=== PATIENT | female | born 1935 | race Caucasian/White ===

== ENCOUNTER 2016-11-26 08:27 | Emergency (ER) | payer OTHER ==
[~2016-11-26] VITALS: Ht 158.8 cm; Wt 65.8 kg
[~2016-11-26 08:27] MED LIST: ASPI81TA21 PO; BIOT1CAP8 PO; CALCTAB5 PO; CHOL1TAB42 PO; KRIL1CAP7 PO; MULT-513 PO; ZNTT/150 PO
[2016-11-26 08:32] VITALS: Ht 158.8 cm; Wt 65.8 kg
--- NOTE | 2016-11-26 09:20 | DIAGNOSTIC IMAGING REPORT ---
SINGLE VIEW CHEST CLINICAL HISTORY: Fever. Sepsis. Nausea. FINDINGS: An AP, portable, upright chest radiograph is compared to study dated 08/07/2016 and correlated with chest CT dated 05/15/2016. The examination is degraded by portable technique and patient rotation. A left subclavian central venous infusion port is unchanged in position. The heart is top normal in size and there is atherosclerotic calcification of the thoracic aorta. Chronic interstitial thickening is unchanged. No airspace consolidation or pleural effusion is seen. There is no pneumothorax. The skeletal structures are osteopenic. The bony thorax is grossly intact. IMPRESSION: No acute cardiopulmonary abnormality and no significant change from 08/07/2016. Electronically signed by: Lan Casey M.D. 11/26/2016 9:18 AM
[2016-11-26 09:30] VITALS: O2SAT 99
[2016-11-26 09:33] LABS: BASO % 0.2 %; BASO ABS # 0.02 K/uL (0-0.2); COMPLETE YES; EOS % 0.1 %; HEMATOCRIT 40.9 % (37-47); IG% 0.2 %; LYMPH % 7.9 %; LYMPH ABS # 1.01 K/uL (1.2-3.4); MEAN CELL VOLUME 93.6 fL (80-100); MEAN CORPUSCULAR HEMOGLOBIN 32.3 pg (25-34); MEAN CORPUSCULAR HGB CONC 34.5 g/dl (32-36); MEAN PLATELET VOLUME 9.9 fL (7.4-10.4); NEUT % 86.6 %; PLATELET COUNT 226 K/uL (130-400); RED BLOOD COUNT 4.37 M/uL (4.2-5.4)
[2016-11-26 09:53] LABS: INR 1.1 (0.9-1.1); PARTIAL THROMBOPLASTIN RATIO 1.3; PROTHROMBIN TIME (PATIENT) 11.4 SECONDS (9.0-12.0)
[2016-11-26 09:54] LABS: ALT/SGPT 26 U/L (12-78); BLOOD UREA NITROGEN 14 mg/dl (7-18); BUN/CREATININE RATIO 25.6 (10-20); CALCIUM 9.3 mg/dl (8.5-10.1); CARBON DIOXIDE 26 mmol/L (21-32); CHLORIDE 102 mmol/L (98-107); CREATININE 0.54 mg/dl (0.60-1.20); GLUCOSE 126 mg/dl (70-99); POTASSIUM 3.8 mmol/L (3.5-5.1); SODIUM 140 mmol/L (136-145)
[2016-11-26 09:59] LABS: ALKALINE PHOSPHATASE 92 U/L (45-117); AST/SGOT 21 U/L (15-37); CKMB/CK RATIO 2.7 (0-3.0)
[2016-11-26 10:15] LABS: MANUAL MICROSCOPIC REQUIRED? NO; REVIEW REQ? NO; URINE APPEARANCE CLEAR (CLEAR); URINE BILIRUBIN NEG (NEG); URINE COLOR YELLOW; URINE NITRITE NEG (NEG); URINE SPECIFIC GRAVITY 1.018 (1.000-1.030); UROBILINOGEN NEG (NEG)
--- NOTE | 2016-11-26 10:45 | EMERGENCY ROOM VISIT NOTE ---
History Report prepared by Clayton: Moira De Jesus Under the Supervision of: Dr. Jean-Claude Torres D.O. First contact with patient: 08:36 Chief Complaint: CHEST PAIN Stated Complaint: CHEAST PAIN, NAUSEA Nursing Triage Summary: Woke up this AM with left sided CP and nausea. Took 2 baby ASA. Denies cardiac history. Pt states her CP hurts more when she tried to take a deep breath. History of Present Illness The patient is a 81 year old female who presents to the Emergency Room with complaints of intermittent left-sided chest pain that started this morning. She describes the pain as sharp and states that it is worse with deep breaths. The pain radiates into her left arm and into her back. The patient states that she woke up with the pain and did not do anything exertional this morning. The patient is also experiencing nausea but denies vomiting as well as shortness of breath. She took two baby aspirin but they offered her minimal relief. Originally, he thought that she pulled a muscle. She has never experienced this pain in the past. Source of History: patient Onset: this morning Position: chest (left) Quality: sharp Timing: intermittent Modifying Factors (Worsening): breathing (deep) Associated Symptoms: + back pain, + nausea, No SOB, No vomiting Note: left arm pain Review of Systems See HPI for pertinent positives & negatives. A total of 10 systems reviewed and were otherwise negative. Past Medical & Surgical Medical Problems: (1) Carpal Tunnel Syndrome (2) Diverticulosis Colon (W/O Ment Of Hemorrhage) (3) Esophageal Reflux (4) Hx Of Ovarian Malignancy (5) Recto-vaginal fistula (6) Ventral hernia Family History Cancer Diabetes mellitus Heart disease Hypertension Kidney disease Kidney stones Social History Smoking Status: Never Smoker Alcohol Use: none Drug Use: none Housing Status: lives alone Occupation Status: retired Current/Historical Medications Scheduled Aspirin Enteric Coated (Ecotrin Or Generic), 81 MG PO QAM Biotin (Biotin), 1 MG PO QAM Calcium (Caltrate), 600 MG PO DAILY Cholecalciferol (Vitamin D), 5,000 INTER.UNIT PO QAM Krill Oil (Krill Oil [place]-3), 1 CAP PO QAM Multivitamins/Minerals (Mvi With Minerals), 1 TAB PO QAM Scheduled PRN Ranitidine (Zantac), 150 MG PO DAILY PRN for PRN Allergies Coded Allergies: Sulfa Antibiotics (Verified Allergy, Unknown, UNKNOWN, 11/26/16) Adhesives (Verified Adverse Reaction, Mild, ?, 11/26/16) Physical Exam Vital Signs Date Time Temp Pulse Resp B/P Pulse Ox O2 Delivery O2 Flow Rate FiO2 11/26/16 11:04 37.2 104 18 133/71 94 11/26/16 10:20 108 18 144/66 95 Room Air 11/26/16 09:30 99 Room Air 11/26/16 08:37 108 11/26/16 08:34 99 Room Air 11/26/16 08:32 37.2 112 18 175/81 97 Room Air Physical Exam CONSTITUTIONAL/VITAL SIGNS: Reviewed / noted above. GENERAL: Non-toxic in appearance. INTEGUMENTARY: Warm, dry, and [place]. HEAD: Normocephalic. EYES: without scleral icterus or trauma. ENT/OROPHARYNX: clear and moist. LYMPHADENOPATHY/NECK: Is supple without lymphadenopathy or meningismus. CHEST: Increased discomfort in left chest wall with movement and resistance to abduction and adduction of left arm. RESPIRATORY: Lungs clear and equal. CARDIOVASCULAR: Regular rate and rhythm. GI/ABDOMEN: Soft and nontender. No organomegaly or pulsatile mass. No rebound or guarding. Normal bowel sounds. EXTREMITIES: Warm and well perfused. BACK: No CVA tenderness. NEUROLOGICAL: Intact without focal deficits. PSYCHIATRIC: normal affect. MUSCULOSKELETAL: Normally developed with good muscle tone. Medical Decision & Procedures ER Provider Diagnostic Interpretation: X ray results and stated below per my interpretation and radiology interpretation. SINGLE VIEW CHEST CLINICAL HISTORY: Fever. Sepsis. Nausea. FINDINGS: An AP, portable, upright chest radiograph is compared to study dated 08/07/2016 and correlated with chest CT dated 05/15/2016. The examination is degraded by portable technique and patient rotation. A left subclavian central venous infusion port is unchanged in position. The heart is top normal in size and there is atherosclerotic calcification of the thoracic aorta. Chronic interstitial thickening is unchanged. No airspace consolidation or pleural effusion is seen. There is no pneumothorax. The skeletal structures are osteopenic. The bony thorax is grossly intact. IMPRESSION: No acute cardiopulmonary abnormality and no significant change from 08/07/2016. Electronically signed by: Lan Casey M.D. 11/26/2016 9:18 AM Laboratory Results 11/26/16 09:08 Red Blood Count 4.37, Mean Corpuscular Volume 93.6, Mean Corpuscular Hemoglobin 32.3, Mean Corpuscular Hemoglobin Concent 34.5, Mean Platelet Volume 9.9, Neutrophils (%) (Auto) 86.6, Lymphocytes (%) (Auto) 7.9, Monocytes (%) (Auto) 5.0, Eosinophils (%) (Auto) 0.1, Basophils (%) (Auto) 0.2, Neutrophils # (Auto) 11.09, Lymphocytes # (Auto) 1.01, Monocytes # (Auto) 0.64, Eosinophils # (Auto) 0.01, Basophils # (Auto) 0.02 11/26/16 09:08 Test 11/26/16 09:08 11/26/16 09:45 White Blood Count 12.80 K/uL (4.8-10.8) Red Blood Count 4.37 M/uL (4.2-5.4) Hemoglobin 14.1 g/dL (12.0-16.0) Hematocrit 40.9 % (37-47) Mean Corpuscular Volume 93.6 fL (80-100) Mean Corpuscular Hemoglobin 32.3 pg (25-34) Mean Corpuscular Hemoglobin Concent 34.5 g/dl (32-36) Platelet Count 226 K/uL (130-400) Mean Platelet Volume 9.9 fL (7.4-10.4) Neutrophils (%) (Auto) 86.6 % Lymphocytes (%) (Auto) 7.9 % Monocytes (%) (Auto) 5.0 % Eosinophils (%) (Auto) 0.1 % Basophils (%) (Auto) 0.2 % Neutrophils # (Auto) 11.09 K/uL (1.4-6.5) Lymphocytes # (Auto) 1.01 K/uL (1.2-3.4) Monocytes # (Auto) 0.64 K/uL (0.11-0.59) Eosinophils # (Auto) 0.01 K/uL (0-0.5) Basophils # (Auto) 0.02 K/uL (0-0.2) RDW Standard Deviation 41.5 fL (36.4-46.3) RDW Coefficient of Variation 12.2 % (11.5-14.5) Immature Granulocyte % (Auto) 0.2 % Immature Granulocyte # (Auto) 0.03 K/uL (0.00-0.02) Prothrombin Time 11.4 SECONDS (9.0-12.0) Prothromb Time International Ratio 1.1 (0.9-1.1) Activated Partial Thromboplast Time 33.3 SECONDS (21.0-31.0) Partial Thromboplastin Ratio 1.3 D-Dimer 300 ug/L FEU (0-500) Anion Gap 12.0 mmol/L (3-11) Est Creatinine Clear Calc Drug Dose 73.6 ml/min Estimated GFR () 102.6 Estimated GFR (Non- 88.5 BUN/Creatinine Ratio 25.6 (10-20) Calcium Level 9.3 mg/dl (8.5-10.1) Total Bilirubin 0.8 mg/dl (0.2-1) Direct Bilirubin 0.2 mg/dl (0-0.2) Aspartate Amino Transf (AST/SGOT) 21 U/L (15-37) Alanine Aminotransferase (ALT/SGPT) 26 U/L (12-78) Alkaline Phosphatase 92 U/L (45-117) Total Creatine Kinase 71 U/L (26-192) Creatine Kinase MB 1.9 ng/ml (0.5-3.6) Creatine Kinase MB Ratio 2.7 (0-3.0) Troponin I < 0.015 ng/ml (0-0.045) Total Protein 7.4 gm/dl (6.4-8.2) Albumin 3.6 gm/dl (3.4-5.0) Lipase 68 U/L (73-393) Urine Color YELLOW Urine Appearance CLEAR (CLEAR) Urine pH 8.0 (4.5-7.5) Urine Specific [place] 1.018 (1.000-1.030) Urine Protein NEG (NEG) Urine Glucose (UA) NEG (NEG) Urine Ketones NEG (NEG) Urine Occult Blood NEG (NEG) Urine Nitrite NEG (NEG) Urine Bilirubin NEG (NEG) Urine Urobilinogen NEG (NEG) Urine Leukocyte Esterase TRACE (NEG) Urine WBC (Auto) 1-5 /hpf (0-5) Urine RBC (Auto) 0-4 /hpf (0-4) Urine Hyaline Casts (Auto) 1-5 /lpf (0-5) Urine Epithelial Cells (Auto) 10-20 /lpf (0-5) Urine Bacteria (Auto) NEG (NEG) Laboratory results as stated above per my review. Medications Administered Medications (Trade) Dose Ordered Sig/Karely Route Start Time Stop Time Status Last Admin Dose Admin Heparin Sodium (Porcine) (Heparin 100 Unit/ml 5ml Flush) 5 ml STK-MED ONCE .ROUTE 11/26/16 09:36 11/26/16 09:37 DC 11/26/16 09:36 5 ML Ondansetron HCl (Zofran Odt) 4 mg ONE ONCE PO 11/26/16 11:00 11/26/16 11:01 DC 11/26/16 10:55 4 MG Ibuprofen (Motrin Tab) 600 mg NOW STAT PO 11/26/16 10:47 11/26/16 10:48 DC 11/26/16 10:54 600 MG ECG Indication: chest pain Rate (beats per minute): 114 Rhythm: sinus tachycardia Findings: no acute ischemic change, no ectopy ED Course 0852: Previous medical records were reviewed. The patient was evaluated in room A10. A complete history and physical examination was performed. 0936: Ordered Heparin Sodium (Porcine) 5 ml IV 1045: On reevaluation, the patient is doing well. I discussed the results and findings with the patient. She verbalized agreement of the treatment plan. She was discharged home. Medical Decision The differentials that were considered include acute myocardial infarction, acute coronary syndrome, myocarditis, pericarditis, pericardial effusions / tamponad, esophageal perforation, thoracic aortic dissection, pulmonary embolism , pneumonia, pneumothorax, pancreatitis, shingles, acute cholecystitis, perforated abdominal viscus. This is an 81-year-old female who presents to the ED with a chief complaint of chest pain. The patient states that she awoke at 6 AM this morning and noticed a sharp pain in the left side of her chest. He had a little nausea but this is not uncommon for her. She states that aspirin did not help. Her pain is worse with certain movements. She also reports some pain with deep breathing. Her initial blood pressure was slightly hypertensive. This improved during her ED stay. Metabolic panel was unremarkable. D-dimer is negative. A chest x-ray was negative for acute disease. Urine did not show infection. The patient was told results the test. She is felt stable for discharge and outpatient follow- up. She did not want any medication for her symptoms initially but later took Motrin and Zofran PO. Impression Primary Impression: Chest wall pain Scribe Attestation The scribe's documentation has been prepared under my direction and personally reviewed by me in its entirety. I confirm that the note above accurately reflects all work, treatment, procedures, and medical decision making performed by me. Departure Information Dispostion Home / Self-Care Referrals Stephen Patel M.D. (PCP) Forms HOME CARE DOCUMENTATION FORM, IMPORTANT VISIT INFORMATION Patient Instructions A Signature Page, [facility] Additional Instructions Your testing today did not show a specific cause for your symptoms. Urine exam findings suggest this is a musculoskeletal pain. Take aspirin, Tylenol or Motrin as needed for discomfort. Return for any worsening or new concerns.
[2016-11-26] MEDS ORDERED: IBUPROFEN 600 MG TAB PO STA (10:47)
[2016-11-26] MEDS ORDERED: ONDANSETRON 4MG OD TAB PO ONE (11:00)
[2016-11-26 11:04] VITALS: BP 133/71; PULSE 104; TEMP 37.2; O2SAT 94
== END 2016-11-26 11:05 | disposition home or self-care (01) ==
LOC: C.EDB 08:28 → C.EDA 11:05
DX: R07.89 Other chest pain (principal); K21.9 Gastro-esophageal reflux disease without esophagitis; Z85.43 Personal history of malignant neoplasm of ovary; K57.30 Diverticulosis of large intestine without perforation or abscess without bleeding; Z80.9 Family history of malignant neoplasm, unspecified; Z83.3 Family history of diabetes mellitus; Z82.49 Family history of ischemic heart disease and other diseases of the circulatory system; Z84.1 Family history of disorders of kidney and ureter; Z79.82 Long term (current) use of aspirin; Z79.899 Other long term (current) drug therapy

== ENCOUNTER → 2016-12-28 | Outpatient (CLI) | payer OTHER | END | disposition home or self-care (01) | LOC: C.PAPS 14:30 | PROVIDERS: ATTEND Obstetrics & Gynecology | DX: C56.9 Malignant neoplasm of unspecified ovary (principal) ==

== ENCOUNTER → 2017-02-15 | Outpatient (CLI) | payer OTHER ==
[~2017-02-15] MED LIST changes: +OPTIRAY 320 IV PRN
--- NOTE | 2017-02-15 11:35 | DIAGNOSTIC IMAGING REPORT ---
CHEST CT WITH CONTRAST CT DOSE: 628.35 mGy.cm HISTORY: Ovarian cancer. Follow-up. TECHNIQUE: Multiaxial CT images of the chest were performed following the intravenous administration of contrast. COMPARISON: Chest 05/15/2016. FINDINGS: The central airways are patent. No pleural effusions. No pneumothorax. Mild biapical pleural-parenchymal scarring, unchanged. Stable 5 mm subpleural nodule within the left lower lobe abutting the major fissure on image 162. Stable similar left lower lobe 4 mm subpleural nodule on image 151. Stable 5 mm right middle lobe nodule on image 154. There are few scattered punctate calcified granulomas. Stable 5 mm right lower lobe pulmonary nodule on image 158. No new pulmonary nodules. No suspicious lytic or blastic osseous lesions. Left subclavian Port-A-Cath terminates in the distal SVC. The central pulmonary arteries are patent. Normal caliber thoracic aorta. No mediastinal or hilar lymphadenopathy. Pectus excavatum deformity. IMPRESSION: No change from the prior study. Stable subcentimeter pulmonary nodules. No new pulmonary nodules identified. Electronically signed by: Negrito Orosco M.D. 02/15/2017 11:34 AM Dictated Date/Time: 02/15/2017 11:28 AM
--- NOTE | 2017-02-15 11:47 | DIAGNOSTIC IMAGING REPORT ---
CT ABD/PELVIS IV AND ORAL CONT CLINICAL HISTORY: OVARIAN CA COMPARISON STUDY: 01/31/2016 TECHNIQUE: Following the IV administration of 93 mL of Optiray-320, CT scan of the abdomen and pelvis was performed from the lung bases to the proximal femurs. Images are reviewed in the axial, sagittal, and coronal planes. IV contrast was administered without complication. CT DOSE: FINDINGS: Lower chest: There is mild interstitial thickening. There are no pleural effusions. Liver: There is hepatic steatosis. No focal masses are visualized. Gallbladder: Unremarkable. Spleen: Normal in size and attenuation. Pancreas: Unremarkable. Adrenal glands: Unremarkable. Kidneys: No solid renal masses are visualized. There is decreased prominence of the collecting systems. Bowel: There are no transition zones indicate bowel obstruction. The appendix is surgically absent. There is no acute diverticulitis. There is a ventral hernia containing a loop of small bowel. This is not resulting in bowel obstruction. Peritoneum: There is no intraperitoneal free air or abdominal ascites. Vasculature: The abdominal aorta is normal in course and caliber. Adenopathy: None. Pelvic viscera: The uterus appears surgically absent. Skeletal structures: No destructive osseous lesions are seen. IMPRESSION: 1. No CT evidence of abdominal pelvic metastatic disease 2. No evidence of bowel obstruction. No evidence of free air 3. Persistent ventral hernia containing a small bowel loop Electronically signed by: Arpan Hoffmann M.D. 02/15/2017 11:45 AM Dictated Date/Time: 02/15/2017 11:42 AM
== END | disposition home or self-care (01) ==
LOC: C.CTS 08:45
PROVIDERS: ATTEND Internal Medicine Hematology & Oncology
DX: C56.9 Malignant neoplasm of unspecified ovary (principal)

== ENCOUNTER → 2017-04-18 | Outpatient (CLI) | payer OTHER ==
[~2017-04-18] MED LIST changes: -OPTIRAY 320 IV PRN
--- NOTE | 2017-04-18 15:11 | MAMMOGRAPHY REPORT ---
BILATERAL DIGITAL SCREENING MAMMOGRAM WITH CAD: 04/18/2017 CLINICAL HISTORY: Routine screening. Patient has no complaints. TECHNIQUE: Current study was also evaluated with a Computer Aided Detection (CAD) system. Bilatera l CC and MLO views were obtained. COMPARISON: Comparison is made to exams dated: 04/13/2016 mammogram, 04/06/2015 mammogram, 03/16/2014 mammogram, 03/12/2013 mammogram, 03/11/2012 mammogram, and 03/08/2011 mammogram - [facility]. BREAST COMPOSITION: There are scattered areas of fibroglandular density in both breasts. FINDINGS: No suspicious masses, calcifications, or areas of architectural distortion are noted in e ither breast. There has been no significant interval change compared to prior exams. Linear scar ma rkers denote scars on the right upper outer breast. A surgical clip is again noted in the right sup erior posterior breast. A port catheter overlies the left pectoralis muscle. Scattered bilateral b enign-appearing calcifications are again noted. IMPRESSION: ACR BI-RADS CATEGORY 2: BENIGN There is no mammographic evidence of malignancy. A 1 year screening mammogram is recommended. The p atient will receive written notification of the results. Approximately 10% of breast cancers are not detected with mammography. A negative mammographic repor t should not delay biopsy if a clinically suggestive mass is present. Janet Burt M.D. ah/:04/18/2017 12:50:50 [employer] Machine Operator: Musa SETHI(R)(M), [facility] letter sent: Normal 1/2 BI-RADS Code: ACR BI-RADS Category 2: Benign
== END | disposition home or self-care (01) ==
LOC: C.MAMM 11:36
PROVIDERS: ATTEND Obstetrics & Gynecology
DX: Z12.31 Encounter for screening mammogram for malignant neoplasm of breast (principal)

== ENCOUNTER → 2017-04-25 | Outpatient (CLI) | payer OTHER ==
--- NOTE | 2017-04-25 14:25 | DIAGNOSTIC IMAGING REPORT ---
CERVICAL SPINE 5 VIEWS HISTORY: DIZZINESS COMPARISON: Cervical spine 11/03/2014. FINDINGS: The cervical spine is visualized from C1 through the superior endplate of T1. There is no fracture. No subluxation. Mild disc space narrowing at C4-C5 and C5-C6. Mild to moderate facet osteoarthritis throughout the cervical spine. This is not significantly changed. Prevertebral soft tissues and the atlantodens interval are intact. Partially visualized left subclavian catheter. IMPRESSION: No fracture or subluxation within the cervical spine. No change in the degenerative changes as described above. Electronically signed by: Negrito Orosco M.D. 04/25/2017 2:24 PM Dictated Date/Time: 04/25/2017 2:22 PM
== END | disposition home or self-care (01) ==
LOC: C.RAD1850 13:52
PROVIDERS: ATTEND Internal Medicine Pulmonary Disease
DX: R42 Dizziness and giddiness (principal)

== ENCOUNTER → 2017-06-19 | Outpatient (CLI) | payer OTHER ==
[2017-06-19 17:46] LABS: CHOLESTEROL/HDL RATIO 4.5
[2017-06-20 08:15] LABS: ESTIMATED AVERAGE GLUCOSE 131 mg/dl; HA1C FLAG Normal (Normal)
== END | disposition home or self-care (01) ==
LOC: C.LABBFT 08:40
PROVIDERS: ATTEND Internal Medicine
DX: R73.9 Hyperglycemia, unspecified (principal); I65.29 Occlusion and stenosis of unspecified carotid artery; M85.80 Other specified disorders of bone density and structure, unspecified site

== ENCOUNTER → 2017-06-28 | Outpatient (CLI) | payer OTHER | END | disposition home or self-care (01) | LOC: C.PAPS 13:25 | PROVIDERS: ATTEND Obstetrics & Gynecology | DX: C56.9 Malignant neoplasm of unspecified ovary (principal) ==

== ENCOUNTER → 2017-07-09 | Outpatient (CLI) | payer OTHER | END | disposition home or self-care (01) | LOC: C.MAMM 11:09 | PROVIDERS: ATTEND Internal Medicine | DX: M85.89 Other specified disorders of bone density and structure, multiple sites (principal); M81.0 Age-related osteoporosis without current pathological fracture ==

== ENCOUNTER → 2017-11-07 | Outpatient (CLI) | payer OTHER ==
[2015-11-09 13:07] VITALS: BP 142/79; PULSE 90
[~2017-11-07] MED LIST changes: +ASPI-319 PO; -ASPI81TA21 PO; +KFL500HP; +RANI150T85 PO; -ZNTT/150 PO
[2017-11-07 13:06] VITALS: BP 144/83; PULSE 92; TEMP 36.7; O2SAT 96
--- NOTE | 2017-11-07 17:21 | Radiation Oncology Follow-Up ---
Radiation Oncology Follow-Up Date of Visit Nov 07, 2017. 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 Restarted chemotherapy. Rise in CEA 125 and positive PET changes February 2013 reinitiation of chemotherapy Residual retro-and precaval lymph nodes Status post completion of radiation therapy 03/30/2014 received 5460 cGy Last Edited By: Kena Maurice on Nov 09, 2015 17:07 Interim History She's been doing well over this past year. She has occasional nausea. She has not had any severe abdominal cramping. She is occasional diarrhea. She has had no episodes of small bowel obstructions over this past year. She has recently had Hemoccult testing that was negative. She is having recheck follow- ups with medical oncology every 3 months. Her CEA 125 has remained stable. This is at 4.0 and has been at this level since 2013. She had a pelvic examination and Pap smear by Dr. Ruiz 06/28/2017. Pap smear was negative for intraepithelial lesion or malignancy. Specimen [id number]. Allergies Coded Allergies: Sulfa Antibiotics (Verified Allergy, Unknown, UNKNOWN, 11/26/16) Adhesives (Verified Adverse Reaction, Mild, ?, 11/26/16) Home Medications Scheduled Aspirin Enteric Coated (Ecotrin Or Generic), 81 MG PO 3xweek Biotin (Biotin), 1 MG PO QAM Cholecalciferol (Vitamin D), 2,000 INTER.UNIT PO QAM Krill Oil (Krill Oil [place]-3), 1 CAP PO 4xweek Multivitamins/Minerals (Mvi With Minerals), 1 TAB PO QAM Scheduled PRN Ranitidine (Zantac), 150 MG PO DAILY PRN for PRN Review of Systems Gastrointestinal: Symptoms: Nausea, Constipation GI Comments: Constipation off and on, IBS - takes colace PRN Oral: Symptoms: No Problems Respiratory: Symptoms: WNL Urinary: Symptoms: WNL, Incontinence Comments: Went to PT for incontinence Skin: Symptoms: No Problems Physical Exam Vital Signs Date Time Temp Pulse Resp B/P (MAP) Pulse Ox O2 Delivery O2 Flow Rate FiO2 11/07/17 13:06 36.7 92 16 144/83 96 Fatigue: None General Appearance: no apparent distress Eyes: normal inspection, EOMI ENT: normal ENT inspection, hearing grossly normal Respiratory/Chest: lungs clear, no respiratory distress, no accessory muscle use Cardiovascular: regular rate, rhythm, no gallop, no murmur Abdomen: non tender, soft, no organomegaly Extremities: no pedal edema Neurologic/Psychiatric: no motor/sensory deficits, alert, normal mood/affect Skin: warm/dry Pain Management Patient Reports Pain: No Patient Preferred Pain Scale: 0 - 10 Initial Pain Intensity: 0.0 Pain Management Plan She denies pain therefore requires no pain management. Imaging Imaging Studies: were reviewed, and pertinent findings noted below Imaging Comments Patient: CARLOS AGUILAR Address1: [address] [place] [address] Rec: [id number] Address2: Acct ID: [id number] [facility] Zip: [place] [address] Date: 1935 Sex: F Room/Bed: Ref Phy: Stephen Patel M.D. SC: C.CTS Att Phy: Basil Quinn MD Report #: [id number] Rochelle Phy: Stephen Patel M.D. Test: APW Admit Phy: Rn Perioperative: [facility] Interpreting Phy: Arpan Hoffmann M.D. Diagnosis: *SWEETENER ALLERGY OVARIAN CA Ordering Phy: Basil Quinn MD Service Date: 02/15/17 Admit Date: 02/15/17 MNE: [id number] CONF: DICTATED BY: Arpan Hoffmann M.D.]] CC: Basil Quinn MD Solic, John, M.D. Endcc: [~ rep ct add3]] CT ABD/PELVIS IV AND ORAL CONT CLINICAL HISTORY: OVARIAN CA COMPARISON STUDY: 01/31/2016 TECHNIQUE: Following the IV administration of 93 mL of Optiray-320, CT scan of the abdomen and pelvis was performed from the lung bases to the proximal femurs. Images are reviewed in the axial, sagittal, and coronal planes. IV contrast was administered without complication. CT DOSE: FINDINGS: Lower chest: There is mild interstitial thickening. There are no pleural effusions. Liver: There is hepatic steatosis. No focal masses are visualized. Gallbladder: Unremarkable. Spleen: Normal in size and attenuation. Pancreas: Unremarkable. Adrenal glands: Unremarkable. Kidneys: No solid renal masses are visualized. There is decreased prominence of the collecting systems. Bowel: There are no transition zones indicate bowel obstruction. The appendix is surgically absent. There is no acute diverticulitis. There is a ventral hernia containing a loop of small bowel. This is not resulting in bowel obstruction. Peritoneum: There is no intraperitoneal free air or abdominal ascites. Vasculature: The abdominal aorta is normal in course and caliber. Adenopathy: None. Pelvic viscera: The uterus appears surgically absent. Skeletal structures: No destructive osseous lesions are seen. IMPRESSION: 1. No CT evidence of abdominal pelvic metastatic disease 2. No evidence of bowel obstruction. No evidence of free air 3. Persistent ventral hernia containing a small bowel loop Electronically signed by: Arpan Hoffmann M.D. 02/15/2017 11:45 AM Dictated Date/Time: 02/15/2017 11:42 AM Assessment & Plan Plan: Continue regular follow-up with medical oncology. She has a recheck visit and labs including a CEA 125 every 3 months. She is now going to follow with Dr. Campos in gynecology. She is now following with Dr. Dior. We asked her return to our office in 1 year. She may call if she has any questions or concerns. Total Time In Follow-Up I spent 15 minutes speaking to the patient and performing examination. I spent 15 minutes reviewing information in completing this note. Copy To Melanie Campos M.D.; Grzegorz Dior M.D.; Basil Quinn MD
== END | disposition home or self-care (01) ==
LOC: C.ONC 12:59
PROVIDERS: ATTEND Physician Assistant Medical
DX: Z08 Encounter for follow-up examination after completed treatment for malignant neoplasm (principal); Z92.3 Personal history of irradiation; Z85.43 Personal history of malignant neoplasm of ovary

== ENCOUNTER 2017-12-25 08:48 | Observation (INO) | payer OTHER ==
[~2017-12-25] VITALS: Ht 157.5 cm; Wt 60.5 kg
[~2017-12-25 08:48] MED LIST changes: -ASPI-319 PO; +ASPI81TA21 PO; -CALCTAB5 PO; -KFL500HP; -RANI150T85 PO; +ZNTT/150 PO
[2017-12-25] MEDS ORDERED: ASPIRIN 81 MG CHEW PO STA (09:14)
[2017-12-25 09:26] LABS: BASO % 0.2 %; BASO ABS # 0.01 K/uL (0-0.2); EOS % 0.5 %; EOS ABS # 0.03 K/uL (0-0.5); HEMATOCRIT 45.8 % (37-47); HEMOGLOBIN 16.1 g/dL (12.0-16.0); LYMPH % 18.9 %; LYMPH ABS # 1.15 K/uL (1.2-3.4); MEAN CELL VOLUME 93.9 fL (80-100); MEAN CORPUSCULAR HGB CONC 35.2 g/dl (32-36); MEAN PLATELET VOLUME 9.8 fL (7.4-10.4); MONO % 3.5 %; MONO ABS # 0.21 K/uL (0.11-0.59); NEUT % 76.9 %; NEUT ABS # 4.67 K/uL (1.4-6.5); PLATELET COUNT 223 K/uL (130-400); RED CELL DISTRIBUTION WIDTH CV 12.2 % (11.5-14.5); RED CELL DISTRIBUTION WIDTH SD 41.3 fL (36.4-46.3); WHITE BLOOD COUNT 6.07 K/uL (4.8-10.8)
[2017-12-25 09:31] LABS: PTT PATIENT 26.6 SECONDS (21.0-31.0)
[2017-12-25 09:46] LABS: ALBUMIN 4.1 gm/dl (3.4-5.0); CALCIUM 9.8 mg/dl (8.5-10.1); CREATININE 0.67 mg/dl (0.60-1.20); POTASSIUM 3.5 mmol/L (3.5-5.1)
[2017-12-25 09:51] LABS: CKMB 2.8 ng/ml (0.5-3.6); TOTAL PROTEIN 8.5 gm/dl (6.4-8.2)
--- NOTE | 2017-12-25 09:54 | DIAGNOSTIC IMAGING REPORT ---
CHEST ONE VIEW PORTABLE HISTORY: Atypical CHEST PAIN COMPARISON: Chest 11/26/2016. FINDINGS: The heart is normal in size. The lungs are clear. No pleural effusions. No pneumothorax. Small surgical clip within the right breast. Left subclavian Port-A-Cath terminates in the SVC. Mild emphysema. IMPRESSION: No significant change compared to the prior study. No acute process. Electronically signed by: Negrito Orosco M.D. 12/25/2017 9:52 AM Dictated Date/Time: 12/25/2017 9:42 AM
--- NOTE | 2017-12-25 10:38 | EMERGENCY ROOM VISIT NOTE ---
History Report prepared by Clayton: Enio Cheung Under the Supervision of: Dr. True Silverman M.D. First contact with patient: 08:56 Chief Complaint: CHEST PAIN Stated Complaint: CHEST PAIN History of Present Illness The patient is a 82 year old female who presents to the Emergency Room with complaints of intermittent left chest pain beginning five days ago. The patient describes her pain as "heaviness", and rates it as a 7/10 in severity. Her pain began in her left arm and moved to her chest. Her pain is worsened with exertion , but not worsened with deep breathing. The patient also complains of nausea. She has no cardiac history. She has a previous history of ovarian cancer eight years ago. The patient's daughter notes that the patient had a work-out class recently where she did push ups. She denies recent prolonged travel. The patient notes that she has not done push-ups in about two years, and that she began feeling her symptoms after the work-out. She denies new shortness of breath, leg pain or swelling, fevers, or chills. The patient is on baby aspirin daily. Source of History: patient Onset: Five days ago Position: chest (left) Symptom Intensity: 7/10 Quality: other ("heaviness") Timing: intermittent Modifying Factors (Worsening): exertion Associated Symptoms: + nausea, No fevers, No chills, No SOB (new) Note: The patient denies leg pain or swelling. Review of Systems See HPI for pertinent positives & negatives. A total of 10 systems reviewed and were otherwise negative. Past Medical & Surgical Medical Problems: (1) Carpal Tunnel Syndrome (2) Diverticulosis Colon (W/O Ment Of Hemorrhage) (3) Esophageal Reflux (4) Hx Of Ovarian Malignancy (5) Recto-vaginal fistula (6) Ventral hernia Old medical records were reviewed. Nurse's notes were reviewed and I agree with. Family History Cancer Diabetes mellitus Heart disease Hypertension Kidney disease Kidney stones Social History Smoking Status: Never Smoker Alcohol Use: none Drug Use: none Housing Status: lives alone Occupation Status: retired Current/Historical Medications Scheduled Aspirin Enteric Coated (Ecotrin Or Generic), 81 MG PO 3xweek Biotin (Biotin), 1 MG PO QAM Cholecalciferol (Vitamin D), 2,000 INTER.UNIT PO QAM Krill Oil (Krill Oil [place]-3), 1 CAP PO 4xweek Multivitamins/Minerals (Mvi With Minerals), 1 TAB PO QAM Scheduled PRN Ranitidine (Zantac), 150 MG PO DAILY PRN for PRN Allergies Coded Allergies: Sulfa Antibiotics (Verified Allergy, Unknown, UNKNOWN, 12/25/17) Adhesives (Verified Adverse Reaction, Mild, ?, 12/25/17) Physical Exam Vital Signs Date Time Temp Pulse Resp B/P (MAP) Pulse Ox O2 Delivery O2 Flow Rate FiO2 12/25/17 11:30 97 Room Air 12/25/17 11:18 92 18 97 Room Air 12/25/17 11:11 168/83 12/25/17 11:11 93 18 164/83 97 Room Air 12/25/17 11:10 164/83 12/25/17 10:50 82 12/25/17 10:48 95 15 97 12/25/17 10:30 85 18 97 Room Air 12/25/17 09:11 97 Room Air 12/25/17 09:06 97 Room Air 12/25/17 08:52 36.4 116 18 174/92 97 Room Air Physical Exam General: Non-ill appearing older female in no acute distress. HEENT: Normal cephalic atraumatic. Pupils are equal round and reactive to light. Extraocular movements are intact. Oropharynx is pink with moist mucous membranes. No swelling of the mouth lips or tongue. Neck: Supple with a midline trachea. No meningeal signs or stiffness, no JVD or bruits. No Stridor. Chest: Clear to auscultation bilaterally. No wheezes or rhonchi. No increased work of breathing. Heart: regular rate and rhythm. Abdomen: Soft nontender, nondistended without rebound guarding or rigidity. Extremities: No cyanosis clubbing or edema. No calf tenderness or assymetry Spine/Back. Non tender to palpation. No CVA tenderness Skin: Good turgor without rashes. Neurologic exam: Cranial nerves two through 12 are intact. Motor and sensation are intact and symmetrical throughout. Medical Decision & Procedures ER Provider Diagnostic Interpretation: Radiology results as stated below per my review and radiologist interpretation: CHEST ONE VIEW PORTABLE FINDINGS: The heart is normal in size. The lungs are clear. No pleural effusions. No pneumothorax. Small surgical clip within the right breast. Left subclavian Port-A-Cath terminates in the SVC. Mild emphysema. IMPRESSION: No significant change compared to the prior study. No acute process. Electronically signed by: Negrito Orosco M.D. 12/25/2017 9:52 AM Laboratory Results 12/25/17 08:07 Red Blood Count 4.88, Mean Corpuscular Volume 93.9, Mean Corpuscular Hemoglobin 33.0, Mean Corpuscular Hemoglobin Concent 35.2, Mean Platelet Volume 9.8, Neutrophils (%) (Auto) 76.9, Lymphocytes (%) (Auto) 18.9, Monocytes (%) (Auto) 3.5, Eosinophils (%) (Auto) 0.5, Basophils (%) (Auto) 0.2, Neutrophils # (Auto) 4.67, Lymphocytes # (Auto) 1.15, Monocytes # (Auto) 0.21, Eosinophils # (Auto) 0.03, Basophils # (Auto) 0.01 12/25/17 08:07 Test 12/25/17 08:07 12/25/17 09:14 12/25/17 09:20 White Blood Count 6.07 K/uL (4.8-10.8) Red Blood Count 4.88 M/uL (4.2-5.4) Hemoglobin 16.1 g/dL (12.0-16.0) Hematocrit 45.8 % (37-47) Mean Corpuscular Volume 93.9 fL (80-100) Mean Corpuscular Hemoglobin 33.0 pg (25-34) Mean Corpuscular Hemoglobin Concent 35.2 g/dl (32-36) Platelet Count 223 K/uL (130-400) Mean Platelet Volume 9.8 fL (7.4-10.4) Neutrophils (%) (Auto) 76.9 % Lymphocytes (%) (Auto) 18.9 % Monocytes (%) (Auto) 3.5 % Eosinophils (%) (Auto) 0.5 % Basophils (%) (Auto) 0.2 % Neutrophils # (Auto) 4.67 K/uL (1.4-6.5) Lymphocytes # (Auto) 1.15 K/uL (1.2-3.4) Monocytes # (Auto) 0.21 K/uL (0.11-0.59) Eosinophils # (Auto) 0.03 K/uL (0-0.5) Basophils # (Auto) 0.01 K/uL (0-0.2) RDW Standard Deviation 41.3 fL (36.4-46.3) RDW Coefficient of Variation 12.2 % (11.5-14.5) Immature Granulocyte % (Auto) 0.0 % Immature Granulocyte # (Auto) 0.00 K/uL (0.00-0.02) Prothrombin Time 10.7 SECONDS (9.0-12.0) Prothromb Time International Ratio 1.0 (0.9-1.1) Activated Partial Thromboplast Time 26.6 SECONDS (21.0-31.0) Partial Thromboplastin Ratio 1.0 Anion Gap 9.0 mmol/L (3-11) Est Creatinine Clear Calc Drug Dose 56.2 ml/min Estimated GFR () 94.9 Estimated GFR (Non- 81.9 BUN/Creatinine Ratio 23.3 (10-20) Calcium Level 9.8 mg/dl (8.5-10.1) Total Bilirubin 0.8 mg/dl (0.2-1) Direct Bilirubin 0.2 mg/dl (0-0.2) Aspartate Amino Transf (AST/SGOT) 22 U/L (15-37) Alanine Aminotransferase (ALT/SGPT) 26 U/L (12-78) Alkaline Phosphatase 88 U/L (45-117) Total Creatine Kinase 58 U/L (26-192) Creatine Kinase MB 2.8 ng/ml (0.5-3.6) Total Protein 8.5 gm/dl (6.4-8.2) Albumin 4.1 gm/dl (3.4-5.0) Lipase 64 U/L (73-393) Creatine Kinase MB Ratio (0-3.0) Bedside Troponin I < 0.030 ng/ml (0-0.045) Laboratory studies as stated above per my review. Medications Administered Medications (Trade) Dose Ordered Sig/Karely Route Start Time Stop Time Status Last Admin Dose Admin Aspirin (Aspirin Chew) 324 mg NOW STAT PO 12/25/17 09:14 12/25/17 09:16 DC 12/25/17 09:23 324 MG ECG Indication: chest pain Rate (beats per minute): 102 Rhythm: sinus tachycardia Findings: RBBB (incomplete), left axis deviation, other (Old inferior infarct. Non-specific T-wave abnormality.) Comparison ECG Date: Nov 26, 2016 Change: no significant change ED Course 0857: Past medical records reviewed. The patient was evaluated in room B12B, and a complete history and physical examination were performed. 0914: Ordered aspirin Chew 324 mg PO. 1030: Upon reevaluation, the patient is resting comfortably. I discussed the results and treatment plan with her. She verbalized agreement of the treatment plan. The patient was discharged home. Medical Decision Differentials include, but are not limited to; musculoskeletal, ACS, arrhythmia , pneumothorax, CHF, PE and electrolyte or metabolic abnormality. This patient comes in as described above. She was placed in room B12. She is here for treatment and evaluation of intermittent chest pain going into her arm. It seems to be worse with exertion. She describes it as pressure She's had no chest pain recently. She has been working out a lot and doing sit ups. The pain is not particularly reproducible upon exam. EKG was obtained which does not show any definite acute ischemic changes and no change compared old. Chest x-ray is unremarkable and shows no findings to suggest heart failure, pneumonia, or pneumothorax. Cardiac biomarkers are not elevated. she's had no significant electrode or metabolic abnormalities. Her symptoms would be very atypical for PE or aortic dissection. She was given aspirin 325 mg chewable. Given her age and her family history I do think she needs to be observed/ admitted for further cardiac workup/rule out. I have consulted Dr. Jama who saw her in the ER for these measures. Medication Reconcilliation Current Medication List: was personally reviewed by me Blood Pressure Screening Patient's blood pressure: Elevated blood pressure Blood pressure disposition: Referred to PCP Consults Time Called: 1028 Consulting Physician: Dr. Jama - [facility] Hospitalist Returned Call: [phone] Discussed the patient's case. The patient will be evaluated for further management. Impression Primary Impression: Precordial chest pain Additional Impression: Unstable angina Scribe Attestation The scribe's documentation has been prepared under my direction and personally reviewed by me in its entirety. I confirm that the note above accurately reflects all work, treatment, procedures, and medical decision making performed by me. Departure Information Dispostion Being Evaluated By Hospitalist Referrals Grzegorz Dior M.D. (PCP) Patient Instructions My [facility] Problem Qualifiers
--- NOTE | 2017-12-25 11:09 | History and Physical ---
History & Physical Date & Time of Service: Dec 25, 2017 at 10:46 Chief Complaint: Chest Pain Primary Care Physician: Grzegorz Dior M.D. History of Present Illness 82yo female with h/o ovarian cancer who presents with chest pain. First episode was last while working out at the local gym doing push- ups. She works out at the gym 3-5 days/week and has been doing this for nearly 50 years! After about 18 push-ups she had nausea. She didn't fell well. She stopped the push-ups at that time. She drove home that day from the gym. That afternoon she developed pain in the left axillary region. The pain was "shooting" and radiated to the left chest. Also radiated to the left back. Pain also described as a grabbing. Some radiation from the left elbow down to the hand. Pain would last for 1-2 hours at a time. Tried tylenol w/o relief. Tried heat w/o relief. Sunday had multiple episodes of left axillary pain radiating to left chest and left back. Sunday the pain episodes were better but she notes she traveled to [place], [place] for family events. Sunday the pain episodes returned and became more frequent. Sunday - worked at the [employer] in [place] - had multiple episodes of left axillary pain radiating to the back and chest. 4-5 episodes at least yesterday. With most episodes she has nausea. She denies any associated dyspnea. Patient mentions that episodes are brought on/worsened by activity and improved with rest. Had episodes in the middle of the night and they were severe. Thus, she came to the ER today for evaluation. Past Medical/Surgical History PMH: 1. 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 Restarted chemotherapy. Rise in CEA 125 and positive PET changes February 2013 reinitiation of chemotherapy Residual retro-and precaval lymph nodes Status post completion of radiation therapy 03/30/2014 received 5460 cGy 2. Recto-vaginal fistula 3. ventral hernia 4. h/o upper extremity DVT in the midst of her YASHIRA/BSO - took anticoagulation "for a month" 5. h/o kidney stone PSH: 1. knee meniscectomy 2. breast bx - right - benign 3. YASHIRA/BSO 4. colonic resection with colostomy formation and ultimate reversal 5. port placement 6. 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 ) Immunizations History of Influenza Vaccine: Yes Influenza Vaccine Date: Sep 20, 2006 History of Tetanus Vaccine?: Yes History of Pneumococcal: Yes Pneumococcal Date: Jul 22, 2008 History of Hepatitis B Vaccine: No Multi-Drug Resistant Organisms History of MDRO: No Allergies Coded Allergies: Sulfa Antibiotics (Verified Allergy, Unknown, UNKNOWN, 12/25/17) Adhesives (Verified Adverse Reaction, Mild, ?, 12/25/17) Home Medications Scheduled Aspirin Enteric Coated (Ecotrin Or Generic), 81 MG PO 3xweek Biotin (Biotin), 1 MG PO QAM Cholecalciferol (Vitamin D), 2,000 INTER.UNIT PO QAM Krill Oil (Krill Oil [place]-3), 1 CAP PO 4xweek Multivitamins/Minerals (Mvi With Minerals), 1 TAB PO QAM Scheduled PRN Ranitidine (Zantac), 150 MG PO DAILY PRN for PRN Review of Systems Constitutional: + weight loss (4-5 pounds last week due to nausea), + fatigue ( x 1 week), No fever, No chills ENT: + trouble swallowing (chronic - solids), No nasal symptoms, No sore throat Respiratory: No cough, No wheezing, No shortness of breath Cardiovascular: + chest pain, No orthopnea, No PND, No edema Abdomen: + nausea, + diarrhea (IBS), + constipation, + problem reported (early satiety x 1 week; bloating - "all the time" ), No vomiting Musculoskeletal: + problem reported (neck DJD - chronic) Genitourinary - Female: No dysuria, No hematuria Neurologic: + numbness/tingling (left hand ) Psychiatric: No depression symptoms, No anxiety Endocrine: + fatigue Hematologic / Lymphatic: No abnormal bleeding/bruising Integumentary: No rash Physical Exam Vital Signs Date Time Temp Pulse Resp B/P (MAP) Pulse Ox O2 Delivery O2 Flow Rate FiO2 12/25/17 09:11 97 Room Air 12/25/17 09:06 97 Room Air 12/25/17 08:52 36.4 116 18 174/92 97 Room Air General Appearance: WD/WN, no apparent distress Head: normocephalic, atraumatic Eyes: PERRL, EOMI, sclerae normal, + pertinent finding (lens implants b/l) ENT: hearing grossly normal, TMs normal, pharynx normal Neck: supple, no adenopathy, thyroid normal, no JVD, no carotid bruits, trachea midline Respiratory/Chest: chest non-tender, lungs clear, no respiratory distress, no accessory muscle use, + wheezing (JOHNATHON with scant end-exp wheeze) Cardiovascular: regular rate, rhythm, no gallop, no murmur, normal peripheral pulses, + pertinent finding (no reproducible chest wall pain) Abdomen/GI: normal bowel sounds, soft, no organomegaly, + tenderness (high epigastric region with deep palpation), + hernia (ventral, midline, small and reducible; midline scar ) Back: normal inspection, no CVA tenderness, no muscle spasm Extremities/Musculoskelatal: normal inspection, no calf tenderness, normal capillary refill, no pedal edema, normal range of motion, + pertinent finding ( left axillary region - tender to deep palpation in the armpit itself; with passive/active ROM of the left shoulder I cannot elicit any pain, however) Neurologic/Psych: no motor/sensory deficits, alert, normal mood/affect, normal reflexes, oriented x 3 Skin: normal color, warm/dry, no rash Lymphatic: no adenopathy (no cerval lad) Diagnostics Laboratory Results Results Past 24 Hours Test 12/25/17 08:07 12/25/17 09:14 12/25/17 09:20 Range/Units White Blood Count 6.07 4.8-10.8 K/uL Red Blood Count 4.88 4.2-5.4 M/uL Hemoglobin 16.1 12.0-16.0 g/dL Hematocrit 45.8 37-47 % Mean Corpuscular Volume 93.9 80-100 fL Mean Corpuscular Hemoglobin 33.0 25-34 pg Mean Corpuscular Hemoglobin Concent 35.2 32-36 g/dl Platelet Count 223 130-400 K/uL Mean Platelet Volume 9.8 7.4-10.4 fL Neutrophils (%) (Auto) 76.9 % Lymphocytes (%) (Auto) 18.9 % Monocytes (%) (Auto) 3.5 % Eosinophils (%) (Auto) 0.5 % Basophils (%) (Auto) 0.2 % Neutrophils # (Auto) 4.67 1.4-6.5 K/uL Lymphocytes # (Auto) 1.15 1.2-3.4 K/uL Monocytes # (Auto) 0.21 0.11-0.59 K/uL Eosinophils # (Auto) 0.03 0-0.5 K/uL Basophils # (Auto) 0.01 0-0.2 K/uL RDW Standard Deviation 41.3 36.4-46.3 fL RDW Coefficient of Variation 12.2 11.5-14.5 % Immature Granulocyte % (Auto) 0.0 % Immature Granulocyte # (Auto) 0.00 0.00-0.02 K/uL Prothrombin Time 10.7 9.0-12.0 SECONDS Prothromb Time International Ratio 1.0 0.9-1.1 Activated Partial Thromboplast Time 26.6 21.0-31.0 SECONDS Partial Thromboplastin Ratio 1.0 Sodium Level 136 136-145 mmol/L Potassium Level 3.5 3.5-5.1 mmol/L Chloride Level 101 98-107 mmol/L Carbon Dioxide Level 26 21-32 mmol/L Anion Gap 9.0 3-11 mmol/L Blood Urea Nitrogen 16 7-18 mg/dl Creatinine 0.67 0.60-1.20 mg/dl Est Creatinine Clear Calc Drug Dose 56.2 ml/min Estimated GFR () 94.9 Estimated GFR (Non- 81.9 BUN/Creatinine Ratio 23.3 10-20 Random Glucose 135 70-99 mg/dl Calcium Level 9.8 8.5-10.1 mg/dl Total Bilirubin 0.8 0.2-1 mg/dl Direct Bilirubin 0.2 0-0.2 mg/dl Aspartate Amino Transf (AST/SGOT) 22 15-37 U/L Alanine Aminotransferase (ALT/SGPT) 26 12-78 U/L Alkaline Phosphatase 88 45-117 U/L Total Creatine Kinase 58 26-192 U/L Creatine Kinase MB 2.8 0.5-3.6 ng/ml Creatine Kinase MB Ratio 4.8 0-3.0 Total Protein 8.5 6.4-8.2 gm/dl Albumin 4.1 3.4-5.0 gm/dl Lipase 64 73-393 U/L Bedside Troponin I < 0.030 0-0.045 ng/ml Diagnostic Radiology cxr: FINDINGS: The heart is normal in size. The lungs are clear. No pleural effusions. No pneumothorax. Small surgical clip within the right breast. Left subclavian Port-A-Cath terminates in the SVC. Mild emphysema. IMPRESSION: No significant change compared to the prior study. No acute process. EKG EKG - my reading - sinus tach IRBBB - chronic q's inferior leads - chronic no ST changes in comparison to prior EKG from 2017 - no changes Impression Assessment and Plan Very pleasant 82yo female with history of ovarian cancer diagnosed initially in 2009, complicated by peritoneal implants and colonic seeding requiring hemicolectomy & colostomy formation (with ultimate reversal of such), presenting with numerous episodes of left axillary pain radiating to her central back and left chest since of last week. Her symptoms were precipitated by doing push-ups at the local gym. Her only CAD risk factor is strong family history of CAD (multiple siblings with CAD). Some of her pain is reproducible in the left axillae today. Despite the frequency of her episodes her initial w/u including troponin, EKG, and CXR are negative. Last stress echo was in 2006 and was negative for ischemia. 1. episodes of chest pain/axillary pain/back pain -- will check CT chest dissection protocol to r/o aortic dissection in light of the chest/back pain. Has prior h/o DVT and thus will rule out PE with this study as well. If CT is negative plan for 2 more troponins today and if these are negative then stress echocardiogram in the AM tomorrow. Try heat and NSAIDs for now for the pains. If work-up for the heart is negative then this may be due to musculoskeletal pain in light of her frequent working out at the gym, etc. 2. elevated BP without dx of HTN - her BPs at home (she has a cuff and checks regularly) typically run 130/80 but yesterday/today her readings were 160s to 180s. Will simply follow these readings for now. Uncertain if the pain is causing the BP elevation, stress, etc. 3. mild hyperglycemia - check hemoglobin a1c, r/o early DM. Check lipid profile in the AM. 4. chronic, ongoing dysphagia - esophageal dysmotility? Will ask speech therapy to see for swallow eval. 5. early satiety, bloating - had negative abd/pelvic CT in January 2017 for recurrent ovarian cancer. Consider repeating these studies as an outpatient. Last CA-125 in September was wnl. 6. DVT proph - lovenox 40mg daily. 7. left arm pain/numbness - could be due to cervical spine DJD, but need to rule out cardiac causes first. Level of Care Telemetry Resuscitation Status FULL RESUSCITATION VTE Prophylaxis Risk Level: Moderate Given or contraindicated: Enoxaparin (Lovenox)SQ Social Service Consult None Apply Note place on observation status - time 60 minutes Additional Copies To Grzegorz Dior M.D.
[2017-12-25 11:30] VITALS: O2SAT 97; BMI 25.1
[2017-12-25] MEDS ORDERED: ONDANSETRON INJ 2 MG/ML 2 ML VIAL IV PRN (11:30)
[2017-12-25] MEDS ORDERED: ALUMINUM/MAGNESIUM/SIMETH (MAALOX MAX) 30 ML UDC PO PRN (11:30)
[2017-12-25] MEDS ORDERED: MAGNESIUM HYDROXIDE SUSP 30 ML UDC PO PRN (11:30)
[2017-12-25] MEDS ORDERED: RANITIDINE HCL 150 MG TAB PO PRN (11:30)
[2017-12-25] MEDS ORDERED: ACETAMINOPHEN 325 MG TAB PO PRN (11:30)
[2017-12-25] MEDS ORDERED: NITROGLYCERIN 0.4 MG SL PER TAB CHARGE SL PRN (11:30)
[2017-12-25 11:34] VITALS: Ht 157.5 cm; Wt 60.5 kg
[2017-12-25] MEDS ORDERED: KETOROLAC TROMETHAMINE 15 MG/ML VIAL IV PRN (11:45)
[2017-12-25] MEDS ORDERED: OPTIRAY 320 IV PRN (12:00)
--- NOTE | 2017-12-25 12:32 | DIAGNOSTIC IMAGING REPORT ---
CHEST COMBO ANGIO DISSECTION CLINICAL HISTORY: Chest and back pain. Ovarian cancer. COMPARISON STUDY: Chest CT February 15, 2017. TECHNIQUE: Unenhanced and arterial phase imaging of the chest was performed. Injection of 95 cc Optiray 320 IV was uneventful. Sagittal and coronal reconstructions were viewed as well as maximal intensity projections on an independent 3-D workstation. FINDINGS: The caliber of the thoracic aorta is normal. There is no evidence for intramural hematoma. There is no thoracic aortic dissection. There is no pulmonary embolus. Heart is mildly enlarged. There is no pericardial effusion. There is moderate coronary artery calcification. Central airways are patent. There is no consolidation to suggest pneumonia. Groundglass opacities favor atelectasis. Numerous pulmonary nodules are unchanged since CTs dating back to December 28, 2014 and are therefore benign. There are no new pulmonary nodules. No suspicious osseous lesions are noted. There is fatty infiltration of the liver. IMPRESSION: 1. No thoracic aortic dissection. 2. No pulmonary emboli identified. 3. No acute intrathoracic findings. 4. No change in multiple small pulmonary nodules which are benign given stability from earlier exams. Electronically signed by: Gerardo Salcedo M.D. 12/25/2017 12:31 PM Dictated Date/Time: 12/25/2017 12:22 PM
[2017-12-25] MEDS ORDERED: IV FLUIDS COMPLETED PRN (13:00)
[2017-12-25 13:01] VITALS: BP 152/70; PULSE 87; TEMP 36.6; O2SAT 95
[2017-12-25 13:07] VITALS: O2SAT 95
[2017-12-25] MEDS ORDERED: SODIUM CHLORIDE 0.9% 500ML 500 ML IV SCH (13:15)
[2017-12-25 14:48] VITALS: BP 126/72; PULSE 81; TEMP 36.6; O2SAT 95
[2017-12-25] MEDS ORDERED: ENOXAPARIN 40 MG/0.4 ML SYR SC SCH (16:00)
[2017-12-25 19:02] VITALS: BP 132/79; PULSE 85; TEMP 36.6; O2SAT 95
[2017-12-26] VITALS (7 sets, daily range): BP systolic 111–148; BP diastolic 59–76; PULSE 75–95; TEMP 36.4–36.8; O2SAT 95–98
[2017-12-26 05:37] LABS: HEMOGLOBIN A1C 5.9 % (4.5-5.6)
[2017-12-26 08:42] LABS: CALCIUM 9.6 mg/dl (8.5-10.1); CREATININE 0.54 mg/dl (0.60-1.20); POTASSIUM 3.7 mmol/L (3.5-5.1)
[2017-12-26] MEDS ORDERED: ASPIRIN 81 MG ECTAB PO SCH (09:00)
[2017-12-26] MEDS ORDERED: CEROVITE ADV FORMULA TAB PO SCH (09:00)
[2017-12-26] MEDS ORDERED: PERFLUTREN LIPID MICROSPHERE (DEFINITY) IV ONE (09:18)
--- NOTE | 2017-12-26 12:31 | EXERCISE STRESS ECHO ---
*NOTICE TO RECEIVING REPUBLICAN AGENCY This information is strictly Confidential and protected under [place] law. [place] law prohibits you from making any further disclosure of this information unless further disclosure is expressly permitted by the written consent of the person to whom it pertains or is authorized by law. A general authorization for the release of medical or other information is not sufficient for this purpose. Hospital accepts no responsibility if the information is made available to any other person, INCLUDING THE PATIENT. Interpretation Summary * Name: CARLOS AGUILAR Study Date: 12/26/2017 08:06 AM BP: 147/73 mmHg * Patient Location: .[facility]\S\N286\S\2 HR: 81 * : 1935 (M/d/yyy) Gender: Female Height: 62 in * Age: 82 yrs Ethnicity: [place] Weight: 137 lb * Ordering Physician: Checo Jama * Referring Physician: Self, Referred * Performed By: Yessi Ibarra RDCS * * Reason For Study: Chest Pain * BSA: 1.6 m2 * -- Conclusions -- * Left ventricular systolic function is normal. * Grade I diastolic dysfunction, (abnormal relaxation pattern). * Very small pericardial effusion * Diagnostic exercise echocardiogram without definitive evidence of inducible ischemia * No symptoms Procedure Details * ECHOEX, CPT #[id number] * ECHO DOPPLER, CPT #[id number] * ECHO COLOR FLOW, CPT #[id number] * The study was technically difficult with many images being suboptimal in quality. * A contrast injection of Definity was performed to improve assessment of LV function. * Contrast was injected into an intravenous site in the right arm. * One vial of Definity ultrasound contrast was diluted in normal saline to a total volume of 10 ml. A total of '2' ml of solution was administered during imaging. * Lot # [id number] of Definity utilized for procedure. * Expiration date . * The attending nurse who injected the contrast agent was Karmen Lawrence RN. Left Ventricular Findings with Stress * Diagnostic exercise echocardiogram without definitive evidence of inducible ischemia No symptoms Left Ventricle * The left ventricle is grossly normal size. * There is normal left ventricular wall thickness. * Ejection Fraction = 60-65%. * Left ventricular systolic function is normal. * Grade I diastolic dysfunction, (abnormal relaxation pattern). * The left ventricular wall motion is normal at rest. Right Ventricle * The right ventricle is grossly normal size. * The right ventricular systolic function is reduced as assessed by tricuspid annular plane systolic excursion (TAPSE) (TAPSE <1.6 cm). Atria * The left atrial size is normal. * Right atrial size is normal. Mitral Valve * The mitral valve is grossly normal. * Significant mitral regurgitation is absent. Tricuspid Valve * The tricuspid valve is not well visualized. * Significant tricuspid regurgitation is absent. Aortic Valve * The aortic valve is not well visualized. * No hemodynamically significant valvular aortic stenosis. * There is no significant aortic regurgitation. Great Vessels * The aortic root is normal size. Pericardium * Very small pericardial effusion Stress Parameters * Normal baseline electrocardiogram. * Stress ECG: No ST changes. No arrhythmias. * Rest heart rate was '98' BPM. * Rest blood pressure was '147/73' * Maximum heart rate achieved was 153 bpm. * Maximum heart rate was 110 % of maximum age-predicted heart rate. * Maximum blood pressure was '218/74' * Total exercise time was '04:13' * Maximum exercise MET level achieved was '6.00' METS * Maximum treadmill speed was '2.50' miles per hour. * Maximum treadmill elevation was '12.00'% grade. Left Ventricular Findings with Stress * Baseline EKG was normal There are no significant ST segment changes during exercise recovery Baseline echocardiographic images demonstrated normal LV systolic function While image quality was suboptimal there did not appear to be any regional wall motion abnormalities with exertion. There appeared to be overall normal augmentation Heart rate and blood pressure response to exercise was normal No symptoms reported during the test Lora treadmill score: 4 (intermediate risk) MMode 2D Measurements and Calculations IVSd 0.81 cm IVSs 1.2 cm LVIDd 3.4 cm LVIDs 2.1 cm LVPWd 0.84 cm LVPWs 1.2 cm IVS/LVPW 0.96 FS 37.6 % EDV(Teich) 46.3 ml ESV(Teich) 14.4 ml EF(Teich) 68.9 % EDV(cubed) 38.1 ml ESV(cubed) 9.3 ml EF(cubed) 75.7 % % IVS thick 53.2 % % LVPW thick 38.9 % LV mass(C)d 73.8 grams LV mass(C)dI 45.4 grams/m\S\2 LV mass(C)s 69.1 grams LV mass(C)sI 42.4 grams/m\S\2 SV(Teich) 31.9 ml SI(Teich) 19.6 ml/m\S\2 SV(cubed) 28.9 ml SI(cubed) 17.7 ml/m\S\2 Ao root diam 1.7 cm Ao root area 2.4 cm\S\2 ACS 1.5 cm LA dimension 2.8 cm LA/Ao 1.6 LVAd ap4 23.3 cm\S\2 LVLd ap4 7.5 cm EDV(MOD-sp4) 62.3 ml EDV(sp4-el) 61.3 ml LVAs ap4 11.1 cm\S\2 LVLs ap4 5.6 cm ESV(MOD-sp4) 19.0 ml ESV(sp4-el) 18.8 ml EF(MOD-sp4) 69.5 % EF(sp4-el) 69.4 % LVAd ap2 14.2 cm\S\2 LVLd ap2 5.4 cm EDV(MOD-sp2) 31.9 ml EDV(sp2-el) 31.5 ml LVAs ap2 6.7 cm\S\2 LVLs ap2 4.0 cm ESV(MOD-sp2) 9.8 ml ESV(sp2-el) 9.7 ml EF(MOD-sp2) 69.1 % EF(sp2-el) 69.1 % LVLd %diff -39.16 % EDV(MOD-bp) 52.6 ml LVLs %diff -41.44 % ESV(MOD-bp) 16.1 ml EF(MOD-bp) 69.3 % SV(MOD-sp4) 43.4 ml SI(MOD-sp4) 26.6 ml/m\S\2 SV(MOD-sp2) 22.0 ml SI(MOD-sp2) 13.5 ml/m\S\2 SV(MOD-bp) 36.4 ml SI(MOD-bp) 22.4 ml/m\S\2 SV(sp4-el) 42.5 ml SI(sp4-el) 26.1 ml/m\S\2 SV(sp2-el) 21.8 ml SI(sp2-el) 13.4 ml/m\S\2 Doppler Measurements and Calculations MV E max geetha 57.8 cm/sec MV A max geetha 101.1 cm/sec MV E/A 0.57 MV dec time 0.27 sec Ao V2 max 81.5 cm/sec Ao max PG 2.7 mmHg Ao max PG (full) 0.31 mmHg LV V1 max PG 2.3 mmHg LV V1 max 76.6 cm/sec PA V2 max 83.5 cm/sec PA max PG 2.8 mmHg
--- NOTE | 2017-12-26 13:00 | Discharge Instructions ---
Discharge Instructions Date of Service Dec 26, 2017. Admission Reason for Admission: Precordial Chest Pain Discharge Discharge Diagnosis / Problem: Chest pain, musculoskeletal Discharge Goals Goal(s): Decrease discomfort, Improve function, Diagnostic testing, Therapeutic intervention Activity Recommendations Activity Limitations: resume your previous activity . Instructions / Follow-Up Instructions / Follow-Up You were admitted to the hospital for overnight observation after presenting with intermittent left sided chest pain. You were evaluated to rule out acute cardiac causes of chest pain. Your work up included a stress echocardiogram, which was negative, as well as serial cardiac enzymes and EKGs. All of your work up was normal. Your pain is resolving today and is likely related to trying a new exercise and is musculoskeletal in nature. You are medically stable for discharge. Medications: *No changes have been made to your medications. *You may take over the counter pain relieves as needed for your pain. Recommendations: *A blood test called a hemoglobin A1c was done to assess for diabetes, as this can increase your cardiovascular risk. Although you do not have diabetes, your hemoglobin A1c was mildly elevated at 5.9. This is considered the "prediabetic " range. Please continue to watch your diet and avoid added/refined sugars and processed foods and continue your regular exercise. Follow up: *You have been scheduled to follow up at Dr. Dior's office with Sandra Newberry PA-C, on December 28 at 9:00 am regarding your hospital stay. Please seek medical attention if you experience fevers, chills, sweats, dizziness/lightheadedness, loss of consciousness, chest pain, shortness of breath, nausea, vomiting, numbness or tingling. Current Hospital Diet Patient's current hospital diet: Regular Diet Discharge Diet Recommended Diet: Regular Diet Pending Studies Studies pending at discharge: no Laboratory Results Hemoglobin A1c Test 12/25/17 15:40 Range/Units Estimated Average Glucose 123 mg/dl Hemoglobin A1c 5.9 H 4.5-5.6 % Lipid Panel Test 12/26/17 07:44 Range/Units Triglycerides Level 111 0-150 mg/dl Cholesterol Level 109 0-200 mg/dl HDL Cholesterol 57 mg/dl Cholesterol/HDL Ratio 1.9 LDL Cholesterol, Calculated 30 mg/dl Medical Emergencies . Who to Call and When: Medical Emergencies: If at any time you feel your situation is an emergency, please call 911 immediately. . Non-Emergent Contact Non-Emergency issues call your: Primary Care Provider Call Non-Emergent contact if: you have a fever, your pain is not controlled, your pain is worsening, your pain is unusual for you, your pain is concerning you, you have any medication questions . Past History Medical & Surgical History: (1) Chest pain . "Provider Documentation" section prepared by Dulce Honeycutt. . VTE Core Measure Inpt VTE Proph given/why not?: Enoxaparin (Lovenox)SQ
--- NOTE | 2017-12-26 15:19 | Discharge Summary ---
Discharge Summary Date of Service Dec 26, 2017. Discharge Summary Admission Date: Dec 25, 2017 at 11:30 Discharge Date: Dec 26, 2017 Discharge Disposition: Home Principal Diagnosis: Chest pain Problems/Secondary Diagnoses: Ovarian cancer s/p YASHIRA and BSO, bowel resection and colostomy, colostomy reversal, h/o DVT Immunizations: Have You Had Influenza Vaccine: Yes Influenza Vaccine Date: Sep 20, 2006 History of Tetanus Vaccine?: Yes History of Pneumococcal: Yes Pneumococcal Date: Jul 22, 2008 History of Hepatitis B Vaccine: No Procedures: Interpretation Summary * Name: CARLOS AGUILAR Study Date: 12/26/2017 08:06 AM BP: 147/73 mmHg * Patient Location: [facility]\S\N286\S\2 HR: 81 * : 1935 (M/d/yyyy) Gender: Female Height: 62 in * Age: 82 yrs Ethnicity: [place] Weight: 137 lb * Ordering Physician: Checo Jama * Referring Physician: Self, Referred * Performed By: Yessi Ibarra RDCS * * Reason For Study: Chest Pain * BSA: 1.6 m2 * -- Conclusions -- * Left ventricular systolic function is normal. * Grade I diastolic dysfunction, (abnormal relaxation pattern). * Very small pericardial effusion * Diagnostic exercise echocardiogram without definitive evidence of inducible ischemia * No symptoms Procedure Details * ECHOEX, CPT #[id number] * ECHO DOPPLER, CPT #[id number] * ECHO COLOR FLOW, CPT #[id number] * The study was technically difficult with many images being suboptimal in quality. * A contrast injection of Definity was performed to improve assessment of LV function. * Contrast was injected into an intravenous site in the right arm. * One vial of Definity ultrasound contrast was diluted in normal saline to a total volume of 10 ml. A total of '2' ml of solution was administered during imaging. * Lot # [id number] of Definity utilized for procedure. * Expiration date . * The attending nurse who injected the contrast agent was Karmen Lawrence RN. Left Ventricular Findings with Stress * Diagnostic exercise echocardiogram without definitive evidence of inducible ischemia No symptoms Left Ventricle * The left ventricle is grossly normal size. * There is normal left ventricular wall thickness. * Ejection Fraction = 60-65%. * Left ventricular systolic function is normal. * Grade I diastolic dysfunction, (abnormal relaxation pattern). * The left ventricular wall motion is normal at rest. Right Ventricle * The right ventricle is grossly normal size. * The right ventricular systolic function is reduced as assessed by tricuspid annular plane systolic excursion (TAPSE) (TAPSE <1.6 cm). Atria * The left atrial size is normal. * Right atrial size is normal. Mitral Valve * The mitral valve is grossly normal. * Significant mitral regurgitation is absent. Tricuspid Valve * The tricuspid valve is not well visualized. * Significant tricuspid regurgitation is absent. Aortic Valve * The aortic valve is not well visualized. * No hemodynamically significant valvular aortic stenosis. * There is no significant aortic regurgitation. Great Vessels * The aortic root is normal size. Pericardium * Very small pericardial effusion Stress Parameters * Normal baseline electrocardiogram. * Stress ECG: No ST changes. No arrhythmias. * Rest heart rate was '98' BPM. * Rest blood pressure was '147/73' * Maximum heart rate achieved was 153 bpm. * Maximum heart rate was 110 % of maximum age-predicted heart rate. * Maximum blood pressure was '218/74' * Total exercise time was '04:13' * Maximum exercise MET level achieved was '6.00' METS * Maximum treadmill speed was '2.50' miles per hour. * Maximum treadmill elevation was '12.00'% grade. Left Ventricular Findings with Stress * Baseline EKG was normal There are no significant ST segment changes during exercise recovery Baseline echocardiographic images demonstrated normal LV systolic function While image quality was suboptimal there did not appear to be any regional wall motion abnormalities with exertion. There appeared to be overall normal augmentation Heart rate and blood pressure response to exercise was normal No symptoms reported during the test Lora treadmill score: 4 ( intermediate risk) Medication Reconciliation Continued Medications: Aspirin Enteric Coated (Ecotrin Or Generic) 81 Mg Tab 81 MG PO 3xweek Biotin (Biotin) 1 Mg Cap 1 MG PO QAM Cholecalciferol (Vitamin D) 5,000 Unit Tab 2000 INTER.UNIT PO QAM Krill Oil (Krill Oil [place]-3) 1 Cap Cap 1 CAP PO 4xweek Multivitamins/Minerals (Mvi With Minerals) Tab 1 TAB PO QAM, 0 Refills Ranitidine (Zantac) 150 Mg Tab 150 MG PO DAILY PRN for PRN, TAB Discharge Exam The patient reports feeling well. She denies any pain under her left axilla or in her chest. She denied any chest pain or shortness of breath during her exercise stress test. She has no complaints. The patient denies fevers, chills , sweats, chest pain, palpitations, claudication, cough, wheezing, shortness of breath, nausea, vomiting, abdominal pain, dysuria, hematuria, urinary retention , paralysis, weakness, numbness and tingling. Constitutional: No fever, No chills, No sweats Eyes: No worsening of vision, No eye pain, No diplopia ENT: No hearing loss, No nasal symptoms, No trouble swallowing Respiratory: No cough, No wheezing, No shortness of breath Cardiovascular: No chest pain, No claudication, No palpitations Abdomen: No pain, No nausea, No vomiting Musculoskeletal: No joint pain, No muscle pain, No swelling Genitourinary - Female: No dysuria, No urinary retention, No hematuria Neurologic: No paralysis, No weakness, No numbness/tingling Integumentary: No rash, No itch, No color change General appearance: Well-developed, well-nourished, no apparent distress Head: Normocephalic, atraumatic Eyes: Normal inspection, PERRL, EOMI ENT: Normal ENT inspection, hearing grossly normal, pharynx normal Neck: Supple, no JVD, trachea midline Respiratory/Chest: Lungs clear to auscultation, normal breath sounds, no respiratory distress Cardiovascular: Regular rate & rhythm, no gallop, no murmur Abdomen/GI: Normal bowel sounds, non-tender, soft Extremities/Musculoskeletal: +Area under left axilla mildly TTP. Normal inspection, no calf tenderness, no pedal edema Neurological/Psych: Alert, normal mood/affect, oriented x 3 Skin: Normal color, warm/dry, no rash Hospital Course 82 y/o female with a history of ovarian cancer s/p YASHIRA and BSO, bowel resection and colostomy, colostomy reversal, and h/o upper extremity DVT who presents with pain under the left axilla radiating to left chest. Chest pain, ACS r/o--pain resolved -Admit to telemetry for observation. No acute events overnight. Pt in SR with HR 70s-90s -Troponin negative x 3 -Stress echo negative for ischemia, no symptoms. EF 60-65%, grade 1 diastolic dysfunction, very small pericardial effusion. -EKG no ischemic changes -Lipid panel WNL -HgbA1c 5.9 on 12/25 -CTA chest negative for dissection and PE -Pt reports pain started after doing pushups and that she had not done pushups for a quite a while. Likely MSK pain Elevated BP--resolving, BP now WNL Early satiety, bloating, h/o ovarian cancer -Consider repeat CT abd/pelvis as outpt DVT prophylaxis -Enoxaparin 40 mg SC q24h Code Status -Level I, FULL RESUSCITATION STATUS Supervising Note Dr. Fitzgerald I performed a history and physical examination on the patient. I reviewed above note and agree with it. I discussed discharge plan with APC and patient. During my face to face encounter with the patient, I answered all of the patient's questions. Total Time Spent: Greater than 30 minutes This includes examination of the patient, discharge planning, medication reconciliation, and communication with other providers. Discharge Instructions Please refer to the electronic Patient Visit Report (Discharge Instructions) for additional information. Additional Copies To Sandra NewberryPCarlotaA.
== END 2017-12-26 15:00 | disposition home or self-care (01) ==
LOC: C.EDB 08:52 → C.MED 11:30 → ENRESERV 11:45
PROVIDERS: ADMIT Internal Medicine; ATTEND Internal Medicine
DX: R07.9 Chest pain, unspecified (principal); K21.0 Gastro-esophageal reflux disease with esophagitis; Z85.43 Personal history of malignant neoplasm of ovary; Z79.82 Long term (current) use of aspirin

== ENCOUNTER → 2018-02-07 | Outpatient (CLI) | payer OTHER ==
[~2018-02-07] MED LIST changes: +OPTIRAY 320 IV PRN; +RANI150T85 PO; -ZNTT/150 PO
[2018-02-07 15:51] LABS: BLOOD UREA NITROGEN 14 mg/dl (7-18); CREATININE 0.59 mg/dl (0.60-1.20)
--- NOTE | 2018-02-07 15:54 | DIAGNOSTIC IMAGING REPORT ---
CT SCAN OF THE ABDOMEN AND PELVIS WITH IV CONTRAST CLINICAL HISTORY: Generalized abdominal pain. Bloating. COMPARISON STUDY: Abdominal CT dated 02/15/2017. TECHNIQUE: Following the IV administration of 90 cc of Optiray 320, CT scan of the abdomen and pelvis is performed from the lung bases to the proximal femora. Images are reviewed in the axial, sagittal, and coronal planes. IV contrast was administered without complication. A dose lowering technique was utilized adhering to the principles of ALARA. CT DOSE: 282.25 mGy.cm FINDINGS: Lung bases: The heart is top normal in size and without pericardial effusion. The coronary arteries are densely calcified. The lung bases are clear noting bibasilar scarring/atelectasis. Liver: The contrast-enhanced liver is normal in size, contour, and attenuation. There is no intrahepatic biliary ductal dilatation. The hepatic veins and portal veins are patent. Gallbladder: Unremarkable. Spleen: Normal in size and attenuation. Pancreas: Atrophic and grossly unremarkable. Adrenal glands: Unremarkable. Kidneys: The contrast enhanced kidneys demonstrate cortical atrophy. There is moderate bilateral hydronephrosis. Right-sided hydronephrosis is unchanged from 02/15/2017 and the right ureter is normal in caliber. 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 Left-sided hydroureteronephrosis has increased from 02/15/2017, and there is a 4 mm obstructing calculus in the distal left ureter seen on image #311. The kidneys enhance symmetrically. 2 additional punctate nonobstructing calculi are seen in the left kidneys. A 3 mm nonobstructing calculus is identified in the right kidney. Abdominal vasculature: The abdominal aorta is normal in course and caliber noting advanced atherosclerotic calcification. Bowel: There are scattered colonic diverticula without CT evidence of acute diverticulitis. Findings suggest previous bowel resection the left mid abdomen. There has also been rectosigmoid resection. There is a ventral hernia in the pelvis which contains a nonobstructed loop of small bowel. This is seen image #324. No bowel obstruction is identified. The appendix is not identified and reported surgically absent Peritoneum: There is no intraperitoneal free air or abdominal ascites. Findings suggest previous omentectomy. There is a small fat-containing umbilical hernia. Lymphadenopathy: None. Pelvic viscera: The bladder is normal as visualized. The uterus is surgically absent. No adnexal lesion is seen. Skeletal structures: The skeletal structures are osteopenic. Mild lumbosacral spondylosis is observed. No lytic or blastic lesions are seen. IMPRESSION: 1. There is a 4 mm obstructing calculus in the distal left ureter with moderate associated hydroureteronephrosis. Left-sided hydronephrosis has increased from 02/15/2017. 2. Moderate right-sided hydronephrosis is unchanged. 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 3. Additional small nonobstructing calculi are seen in both kidneys. 4. A ventral hernia in the pelvis contains a nonobstructed segment of small bowel. No bowel obstruction is identified. 5. Additional findings as above. Electronically signed by: Lan Casey M.D. 02/07/2018 3:53 PM Dictated Date/Time: 02/07/2018 3:42 PM
== END | disposition home or self-care (01) ==
LOC: C.CTS 14:32
PROVIDERS: ATTEND Physician Assistant Medical
DX: R14.0 Abdominal distension (gaseous) (principal); R10.9 Unspecified abdominal pain

== ENCOUNTER → 2018-02-15 | Outpatient (CLI) | payer OTHER ==
[~2018-02-15] MED LIST changes: -OPTIRAY 320 IV PRN
== END | disposition home or self-care (01) ==
LOC: C.LABSPEC 17:18
PROVIDERS: ATTEND Urology
DX: N20.0 Calculus of kidney (principal)

== ENCOUNTER → 2018-02-25 | Outpatient (CLI) | payer OTHER ==
--- NOTE | 2018-02-25 10:04 | DIAGNOSTIC IMAGING REPORT ---
GI SERIES W/O KUB CLINICAL HISTORY: NAUSEA, VOMITING, BLOATING COMPARISON STUDY: None FLUOROSCOPY TIME: 2.1 minutes. NUMBER OF FLUOROSCOPIC IMAGES: 21 FINDINGS: A single contrast study was performed utilizing [employer]. The patient swallowed barium without difficulty. There is a episode of penetration but no aspiration. The visualized portions the esophagus were unremarkable. No gastric masses are visualized. There is a small hiatal hernia. There is no gastric outlet obstruction. The duodenal bulb appeared normal. Ligament Treitz was located in the normal anatomical position. 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 No reflux was identified. IMPRESSION: 1. No gastric masses identified. 2. No evidence of gastric outlet obstruction. Normal duodenal bulb. 3. The ligament of Treitz is located in the normal anatomical position 4. Small hiatal hernia Electronically signed by: Arapn Hoffmann M.D. 02/25/2018 10:03 AM Dictated Date/Time: 02/25/2018 9:59 AM
== END | disposition home or self-care (01) ==
LOC: C.RAD 08:54
PROVIDERS: ATTEND Internal Medicine Gastroenterology
DX: R11.2 Nausea with vomiting, unspecified (principal); R14.0 Abdominal distension (gaseous)

== ENCOUNTER → 2018-03-22 | Outpatient (CLI) | payer OTHER ==
[~2018-03-22] MED LIST changes: +ASPI-319 PO; -ASPI81TA21 PO
[2018-03-22 12:07] LABS: BASO % 0.2 %; BASO ABS # 0.01 K/uL (0-0.2); EOS ABS # 0.05 K/uL (0-0.5); HEMATOCRIT 42.3 % (37-47); HEMOGLOBIN 14.6 g/dL (12.0-16.0); IG# 0.01 K/uL (0.00-0.02); LYMPH % 30.2 %; LYMPH ABS # 1.45 K/uL (1.2-3.4); MEAN CELL VOLUME 93.2 fL (80-100); MEAN CORPUSCULAR HEMOGLOBIN 32.2 pg (25-34); MEAN CORPUSCULAR HGB CONC 34.5 g/dl (32-36); MEAN PLATELET VOLUME 10.6 fL (7.4-10.4); MONO ABS # 0.29 K/uL (0.11-0.59); NEUT % 62.4 %; NEUT ABS # 2.99 K/uL (1.4-6.5); PLATELET COUNT 232 K/uL (130-400); RED CELL DISTRIBUTION WIDTH CV 12.4 % (11.5-14.5)
[2018-03-22 12:39] LABS: ALBUMIN 4.1 gm/dl (3.4-5.0); ALT/SGPT 28 U/L (12-78); AST/SGOT 25 U/L (15-37); BLOOD UREA NITROGEN 17 mg/dl (7-18); CALCIUM 9.8 mg/dl (8.5-10.1); CARBON DIOXIDE 30 mmol/L (21-32); CHOLESTEROL 196 mg/dl (0-200); CREATININE 0.63 mg/dl (0.60-1.20); GLUCOSE 106 mg/dl (70-99); POTASSIUM 3.6 mmol/L (3.5-5.1); SODIUM 139 mmol/L (136-145)
[2018-03-22 12:50] LABS: ALKALINE PHOSPHATASE 85 U/L (45-117); LDL CHOLESTEROL CALCULATED 115 mg/dl; TOTAL PROTEIN 8.5 gm/dl (6.4-8.2)
== END | disposition home or self-care (01) ==
LOC: C.LABBFT 07:58
PROVIDERS: ATTEND Internal Medicine
DX: R73.03 Prediabetes (principal); E78.5 Hyperlipidemia, unspecified; E55.9 Vitamin D deficiency, unspecified

== ENCOUNTER → 2018-03-26 | Outpatient (CLI) | payer OTHER | END | disposition home or self-care (01) | LOC: C.LAB 17:20 | PROVIDERS: ATTEND Internal Medicine | DX: D89.2 Hypergammaglobulinemia, unspecified (principal) ==

== ENCOUNTER → 2018-07-09 | Outpatient (CLI) | payer OTHER ==
[2018-07-09 08:58] LABS: BASO % 0.6 %; BASO ABS # 0.03 K/uL (0-0.2); EOS ABS # 0.05 K/uL (0-0.5); HEMATOCRIT 38.1 % (37-47); HEMOGLOBIN 13.3 g/dL (12.0-16.0); IG# 0.01 K/uL (0.00-0.02); LYMPH % 29.8 %; LYMPH ABS # 1.55 K/uL (1.2-3.4); MEAN CELL VOLUME 92.5 fL (80-100); MEAN CORPUSCULAR HEMOGLOBIN 32.3 pg (25-34); MEAN CORPUSCULAR HGB CONC 34.9 g/dl (32-36); MEAN PLATELET VOLUME 10.3 fL (7.4-10.4); MONO % 6.5 %; MONO ABS # 0.34 K/uL (0.11-0.59); NEUT % 61.9 %; NEUT ABS # 3.23 K/uL (1.4-6.5); PLATELET COUNT 201 K/uL (130-400); RED CELL DISTRIBUTION WIDTH SD 40.8 fL (36.4-46.3); WHITE BLOOD COUNT 5.21 K/uL (4.8-10.8)
[2018-07-09 09:19] LABS: ALBUMIN 3.7 gm/dl (3.4-5.0); ALT/SGPT 26 U/L (12-78); AST/SGOT 23 U/L (15-37); BLOOD UREA NITROGEN 18 mg/dl (7-18); CALCIUM 9.3 mg/dl (8.5-10.1); CARBON DIOXIDE 29 mmol/L (21-32); CREATININE 0.54 mg/dl (0.60-1.20); GLUCOSE 108 mg/dl (70-99); POTASSIUM 3.6 mmol/L (3.5-5.1); SODIUM 140 mmol/L (136-145)
[2018-07-09 09:25] LABS: ALKALINE PHOSPHATASE 71 U/L (45-117); TOTAL PROTEIN 7.6 gm/dl (6.4-8.2)
== END | disposition home or self-care (01) ==
LOC: C.LABSPEC 08:34
PROVIDERS: ATTEND Nurse Practitioner Family
DX: C56.9 Malignant neoplasm of unspecified ovary (principal)

== ENCOUNTER 2018-07-22 12:22 | Emergency (ER) | payer OTHER ==
[~2018-07-22] VITALS: Ht 158.8 cm; Wt 61.4 kg
[2018-07-22 12:28] VITALS: TEMP 36.6; Ht 158.8 cm; Wt 61.4 kg
[2018-07-22] MEDS ORDERED: KFL500HP (12:59)
--- NOTE | 2018-07-22 15:06 | DIAGNOSTIC IMAGING REPORT ---
LEFT LOWER EXTREMITY VENOUS DOPPLER HISTORY: left leg swelling COMPARISON STUDY: None. FINDINGS: There is normal compressibility, flow, and augmentation within the left lower extremity deep venous system. IMPRESSION: No DVT within the left lower extremity. Electronically signed by: Negrito Orosco M.D. 07/22/2018 3:05 PM Dictated Date/Time: 07/22/2018 3:05 PM
--- NOTE | 2018-07-22 15:07 | EMERGENCY ROOM VISIT NOTE ---
History Report prepared by Clayton: Basil Mcclendon Under the Supervision of: Dr. Jean-Claude Torres D.O. First contact with patient: 12:50 Chief Complaint: LEG PAIN,LEG INJURY Stated Complaint: LEG INJURY History of Present Illness The patient is an 83 year old female who presents to the Emergency Room with complaints of constant leg pain beginning ten days ago. The patient states that she injured her left leg ten days ago when she fell on the patio. She notes that she miss-stepped and did not lose consciousness at that time. She reports that she saw her PCP and was placed on antibiotics five days ago. The patient states that the injuries on her left leg became red and swollen three days ago, and she notes that they are still draining. She reports that she has been using ice and elevating her foot with mild relief of her symptoms. Source of History: patient Onset: ten days ago Position: leg (left) Timing: constant Modifying Factors (Relieving): ice, elevation Associated Symptoms: No LOC Note: The patient also complains of left leg redness, swelling, and drainage. Review of Systems See HPI for pertinent positives & negatives. A total of 10 systems reviewed and were otherwise negative. Past Medical & Surgical Medical Problems: (1) Carpal Tunnel Syndrome (2) Diverticulosis Colon (W/O Ment Of Hemorrhage) (3) Esophageal Reflux (4) Hx Of Ovarian Malignancy (5) Recto-vaginal fistula (6) Ventral hernia Family History Cancer Diabetes mellitus Heart disease Hypertension Kidney disease Kidney stones Social History Smoking Status: Never Smoker Alcohol Use: none Drug Use: none Marital Status: Housing Status: lives alone Occupation Status: retired Current/Historical Medications Scheduled Aspirin Enteric Coated (Ecotrin Or Generic), 81 MG PO 3xweek Biotin (Biotin), 1 MG PO QAM Cholecalciferol (Vitamin D), 2,000 INTER.UNIT PO QAM Krill Oil (Krill Oil [place]-3), 1 CAP PO 4xweek Multivitamins/Minerals (Mvi With Minerals), 1 TAB PO QAM Miscellaneous Medications Cephalexin Monohydrate (Cephalexin) Allergies Coded Allergies: Sulfa Antibiotics (Verified Allergy, Unknown, UNKNOWN, 07/22/18) Adhesives (Verified Adverse Reaction, Mild, ?, 07/22/18) Physical Exam Vital Signs Date Time Temp Pulse Resp B/P (MAP) Pulse Ox O2 Delivery O2 Flow Rate FiO2 8/27/18 12:28 36.6 100 20 171/82 95 Room Air Physical Exam CONSTITUTIONAL/VITAL SIGNS: Reviewed / noted above. GENERAL: Non-toxic in appearance. INTEGUMENTARY: Warm, dry, and [place]. HEAD: Normocephalic. EYES: without scleral icterus or trauma. ENT/OROPHARYNX: clear and moist. LYMPHADENOPATHY/NECK: Is supple without lymphadenopathy or meningismus. RESPIRATORY: Lungs clear and equal. CARDIOVASCULAR: Regular rate and rhythm. GI/ABDOMEN: Soft and nontender. No organomegaly or pulsatile mass. No rebound or guarding. Normal bowel sounds. EXTREMITIES: Warm and well perfused. Small open sores to the left superior and left inferior anterior leg, no obvious infection, mild swelling of left leg compared to right, no calf tenderness. BACK: No CVA tenderness. NEUROLOGICAL: Intact without focal deficits. PSYCHIATRIC: normal affect. MUSCULOSKELETAL: Normally developed with good muscle tone. Medical Decision & Procedures ER Provider Diagnostic Interpretation: Radiology results as stated below per my review and radiologist interpretation: LEFT LOWER EXTREMITY VENOUS DOPPLER FINDINGS: There is normal compressibility, flow, and augmentation within the left lower extremity deep venous system. IMPRESSION: No DVT within the left lower extremity. Electronically signed by: Negrito Orosco M.D. 07/22/2018 3:05 PM ED Course 1252: Previous medical records were reviewed. The patient was evaluated in room D9. A complete history and physical examination was performed. 1508: On reevaluation, the patient is stable. I discussed the results and findings with the patient. She verbalized agreement of the treatment plan. The patient was discharged home. Medical Decision Differential diagnosis: Etiologies such as DVT, musculoskeletal, infection, joint effusion, trauma, lymphedema, idiopathic, CHF, as well as others were entertained. This is an 83-year-old female who was sent in for evaluation of DVT. Details listed above. The patient injured her left leg last week. She had some swelling in the leg and her PCP recommended she come in for a DVT study. Her ultrasound today was negative. There is no obvious infection. This is felt to be stable for discharge. Medication Reconcilliation Current Medication List: was personally reviewed by me Blood Pressure Screening Patient's blood pressure: Elevated blood pressure Blood pressure disposition: Referred to PCP Impression Primary Impression: Leg edema, left Scribe Attestation The scribe's documentation has been prepared under my direction and personally reviewed by me in its entirety. I confirm that the note above accurately reflects all work, treatment, procedures, and medical decision making performed by me. Departure Information Dispostion Home / Self-Care Referrals Grzegorz Dior M.D. (PCP) Forms HOME CARE DOCUMENTATION FORM, IMPORTANT VISIT INFORMATION Patient Instructions [facility] Additional Instructions The ultrasound today did not show a DVT. Anticipate improvement of symptoms as the wounds heal.
[2018-07-22 15:14] VITALS: BP 156/83; PULSE 94; O2SAT 96
== END 2018-07-22 15:30 | disposition home or self-care (01) ==
LOC: C.EDB 12:23 → C.EDD 15:30
DX: R60.0 Localized edema (principal); K21.9 Gastro-esophageal reflux disease without esophagitis; K57.90 Diverticulosis of intestine, part unspecified, without perforation or abscess without bleeding; Z88.2 Allergy status to sulfonamides

== ENCOUNTER 2019-03-08 09:35 | Observation (INO) ==
[2019-03-08] MEDS ORDERED: LABETALOL HCL IV 5 MG/ML 20ML IV STA (09:59)
[2019-03-08 10:16] LABS: Basophils # (auto) 0.02 K/uL (0-0.2); Basophils % (auto) 0.4 %; Eosinophils # (auto) 0.03 K/uL (0-0.5); Eosinophils % (auto) 0.6 %; Hemoglobin 13.9 g/dL (12.0-16.0); Immature Granulocytes # (auto) 0.01 K/uL (0.00-0.02); Immature Granulocytes % (auto) 0.2 %; Lymphocytes # (auto) 1.27 K/uL (1.2-3.4); Mean Corpuscular Hgb Conc 35.6 g/dL (32-36); Mean Corpuscular Volume 91.3 fL (80-100); Mean Platelet Volume 9.8 fL (7.4-10.4); Monocytes # (auto) 0.29 K/uL (0.11-0.59); Monocytes % (auto) 5.9 %; Neutrophils # (auto) 3.27 K/uL (1.4-6.5); Neutrophils % (auto) 66.9 %; Platelet Count 215 K/uL (130-400); RDW Coefficient of Variation 12.3 % (11.5-14.5); RDW Standard Deviation 41.1 fL (36.4-46.3); Red Blood Count 4.27 M/uL (4.2-5.4); White Blood Count 4.89 K/uL (4.8-10.8)
[2019-03-08 10:32] LABS: D Dimer 280 ug/L FEU (0-500)
[2019-03-08 10:33] LABS: BUN Creatinine Ratio 24.4 (10-20); Blood Urea Nitrogen 15 mg/dl (7-18); Calcium 10.2 mg/dl (8.5-10.1); Carbon Dioxide 30 mmol/L (21-32); Chloride 103 mmol/L (98-107); Creatinine Clr Calc Pharmacy 57.9 ml/min; Est GFR (Non-African American) 82.8; Glucose 115 mg/dl (70-99); Magnesium 1.5 mg/dl (1.8-2.4); Potassium 3.3 mmol/L (3.5-5.1); Sodium 139 mmol/L (136-145)
[2019-03-08 10:38] LABS: Troponin I < 0.015 ng/ml (0-0.045)
--- NOTE | 2019-03-08 11:11 | XRay Report ---
SINGLE VIEW CHEST CLINICAL HISTORY: Left-sided chest pain. Hypertension. Epistaxis. FINDINGS: An AP, portable, upright chest radiograph is compared to chest x-ray and chest CT dated 11/28. The examination is degraded by portable technique and patient rotation. A left subclavian daniel tral venous infusion port is unchanged in position. The heart is enlarged and there is atheroscleroti c calcification of the thoracic aorta. The pulmonary vasculature is noncongested. Chronic interstitia l thickening is similar to previous. There are scattered calcified granulomas. No airspace consolidat ion or large pleural effusion is identified. No pneumothorax is seen. The skeletal structures are ost eopenic. The bony thorax is grossly intact. IMPRESSION: Cardiomegaly with no acute cardiopulmonary abnormality. Electronically signed by: Lan Casey M.D. 03/08/2019 11:10 AM
[2019-03-08] MEDS ORDERED: ASPIRIN 81 MG CHEW PO STA (11:15)
--- NOTE | 2019-03-08 11:29 | Emergency Department Note ---
Entered by Trevor Flores acting as a scribe for Leon Barton MD ED Provider Note Name: Maryse Moody Age: 84 F Arrives Via: private vehicle Informant: patient CC: chest pain HPI: The patient is an 84 year old female who presents to the Emergency Room with complaints of persistent left-sided burning chest pain for the past two weeks. The patient reports radiation around to her left shoulder blade. She also reports that this morning she was dizzy, had a nosebleed, and her systolic pressure was in the 200s. She notes that when she last checked her blood pressure one week ago it was normal, and she denies a history of hypertension. She states that she has been taking Advil and Tylenol for her pain. She notes that her pain felt worse recently after returning home from exercising at the [facility]. She denies rashes, new weakness, urinary symptoms, or visual changes. She states that she chronically speaks out of the right side of her mouth. She notes that she has not been evaluated for her current symptoms. ROS: See above HPI for pertinent positives & negatives. A total of 10 systems reviewed and were otherwise negative. Past Medical History: small bowel obstruction, ventral hernia Past Surgical History: history of colonoscopy Family History: CAD in sister Social History: lives alone, never smoker Home Medications: Tylenol, aspirin, biotin, ibuprofen, multivitamin Allergies Sulfa, adhesive Physical: Vitals: BP: 172/93, Pulse: 91, Resp: 16, O2 Sat: 97, Delivery: Room Air Exam: GENERAL: Patient is elderly appearing and in mild distress. EYES: No scleral icterus, unremarkable pupils. ENT: Mucous membranes moist, no nasal congestion. NECK: No masses appreciated, no meningismus, trachea is midline. RESPIRATORY: No dyspnea. Clear to auscultation and equal bilaterally. No wheeze, no rhonchi. CARDIOVASCULAR: Tachycardic rate and regular rhythm. No murmurs, rubs, gallops appreciated. GASTROINTESTINAL: Abdomen soft, non-tender, no peritonitis. Bowel sounds positive. No masses appreciated. BACK: No midline tenderness, no CVA tenderness EXTREMITIES: Normal motion all extremities, no cyanosis, no edema. NEUROLOGIC: Alert and oriented, no acute motor or sensory deficits, no focal weakness, cranial nerves grossly intact. Talks out of right side mouth without neuro deficit (this is chronic since she was a kid). SKIN: No rash, no jaundice, no diaphoresis. ED Course: Prior Medical Record, Triage/Nursing Notes, Medications, Allergies reviewed by Me Vital Signs: reviewed and remarkable for HTN Labs: Reviewed and remarkable for normal cbc, bmp, dimer, trop Interventions: Labetalol 10mg IV, Aspirin 324mg PO Imaging: X ray results are stated below per my interpretation: Chest: 1 view: No infiltrate, no effusion, normal cardiac border. EKG: Per My Interpretation: Indication: CP/HTN. NSR 97 bpm without ectopy nor ischemia. There is RBBB. no Ischemia. No ectopy. QTC 502. Consults: 1105: [facility] Hospitalist was paged. 1129: I consulted Dr. Minaya [facility] Hospitalist. The patient will be reevaluated for hospitalization. Evaluations: 0953: The patient was evaluated in room A3, and a complete history and physical examination were performed. Blood pressure: Elevated - Referred to hospitalist Disposition: Hospitalization Differentials: hypertensive emergency, ACS, dissection, PE, pneumonia, and musculoskeletal amongst other pathologies. Medical Decision Making: Pleasant 84 yr old female with waxing/waning left chest pain/pressure over last 2 weeks. Today worsening pain, weakness, and bloody nose earlier. BP quite high here and improves with IV labetalol. I'll note she has no history of hypertension nor cardiac disease. Initial EKG without evidence ACS nor is Trop bumped, however with waxing waning pain I can not entirely rule out ACS, especially given symptoms minimal currently. With normal Dimer and unremarkable CXR does not appear dissection, nor does she need CT A chest for PE. Labs looking OK. She is not septic and no clear evidence infection, still awaiting UA. With HTN, CP I feel this most likely represents acute hypertensive emergency, especially given improving CP with improvement in BP. Reviewed case with Dr Minaya who will evaluate further. I held off on CT head as no acute headache nor new neuro deficits. Impression: Hypertensive Emergency Left Sided Chest pain Leon Barton MD The scribe's documentation has been prepared under my direction and personally reviewed by me in its entirety. I confirm that the note above accurately reflects all work, treatment, procedures, and medical decision making performed by me. Impression & Plan Hypertensive emergency, Left-sided chest pain Past Med/Surg History Medical History Ventral hernia (Chronic) Bladder infection (Acute) SBO (small bowel obstruction) (Acute) Family History Other Heart disease Social History Preferred Language: Thai Communication Ability: Effective Field Party Manager Required: No Beliefs That Will Affect Care: None Current Living Situation: Alone Other Information That Helps Us Care for You: No Feels Safe at Home: Yes Safety Concerns: Feels Safe At This Time Smoking Status: Never smoker Hx Alcohol Use: No Hx Substance Use: No Results & Data Vital Signs Vital Signs - 24 hr 03/08/19 09:38 03/08/19 10:22 03/08/19 11:00 Temperature 36.5 C Temperature Source Oral Sepsis Recent Fever Within 48 Hours No Sepsis New/Unexplained Change in Mental Status No Sepsis Action Taken by Nursing No Action Required Pulse Rate 100 H 74 Pulse Rate [Apical] 91 H 78 Pulse Rate from SpO2 Sensor 75 Pulse Rhythm [Apical] Regular Regular Pulse Strength [Apical] Normal Normal Respiratory Rate 16 16 23 Respiratory Effort / Characteristics Non-Labored Spontaneous Non-Labored Spontaneous Respiratory Depth Normal Normal Normal Respiratory Pattern Regular Regular Blood Pressure 220/92 H 176/86 H Blood Pressure [Right Arm] 172/93 H 176/86 H Blood Pressure Mean 134 116 Blood Pressure Mean [Right Arm] 119 116 Blood Pressure Position [Right Arm] Lying Lying Pulse Oximetry 98 96 98 Oxygen Delivery Method Room Air Room Air Room Air 03/08/19 11:01 03/08/19 11:16 03/08/19 11:19 Temperature Temperature Source Sepsis Recent Fever Within 48 Hours Sepsis New/Unexplained Change in Mental Status Sepsis Action Taken by Nursing Pulse Rate 78 77 Pulse Rate [Apical] Pulse Rate from SpO2 Sensor 78 72 78 Pulse Rhythm [Apical] Pulse Strength [Apical] Respiratory Rate 16 16 17 Respiratory Effort / Characteristics Respiratory Depth Respiratory Pattern Blood Pressure 177/57 H 154/79 H Blood Pressure [Right Arm] Blood Pressure Mean 97 104 Blood Pressure Mean [Right Arm] Blood Pressure Position [Right Arm] Pulse Oximetry 98 96 96 Oxygen Delivery Method Room Air Room Air Room Air 03/08/19 11:30 03/08/19 11:31 03/08/19 11:45 Temperature Temperature Source Sepsis Recent Fever Within 48 Hours Sepsis New/Unexplained Change in Mental Status Sepsis Action Taken by Nursing Pulse Rate 72 77 73 Pulse Rate [Apical] Pulse Rate from SpO2 Sensor 72 77 76 Pulse Rhythm [Apical] Pulse Strength [Apical] Respiratory Rate 15 20 15 Respiratory Effort / Characteristics Respiratory Depth Respiratory Pattern Blood Pressure 158/70 H 149/77 H Blood Pressure [Right Arm] Blood Pressure Mean 99 101 Blood Pressure Mean [Right Arm] Blood Pressure Position [Right Arm] Pulse Oximetry 98 97 98 Oxygen Delivery Method Room Air Room Air 03/08/19 12:00 03/08/19 12:01 03/08/19 12:30 Temperature Temperature Source Sepsis Recent Fever Within 48 Hours Sepsis New/Unexplained Change in Mental Status Sepsis Action Taken by Nursing Pulse Rate 72 76 80 Pulse Rate [Apical] Pulse Rate from SpO2 Sensor 72 75 76 Pulse Rhythm [Apical] Pulse Strength [Apical] Respiratory Rate 15 26 H 13 Respiratory Effort / Characteristics Respiratory Depth Respiratory Pattern Blood Pressure 141/71 H 151/66 H Blood Pressure [Right Arm] Blood Pressure Mean 94 94 Blood Pressure Mean [Right Arm] Blood Pressure Position [Right Arm] Pulse Oximetry 96 97 95 Oxygen Delivery Method 03/08/19 12:31 03/08/19 13:00 03/08/19 13:01 Temperature Temperature Source Sepsis Recent Fever Within 48 Hours Sepsis New/Unexplained Change in Mental Status Sepsis Action Taken by Nursing Pulse Rate 82 76 75 Pulse Rate [Apical] Pulse Rate from SpO2 Sensor 79 75 73 Pulse Rhythm [Apical] Pulse Strength [Apical] Respiratory Rate 14 13 18 Respiratory Effort / Characteristics Respiratory Depth Respiratory Pattern Blood Pressure 145/76 H Blood Pressure [Right Arm] Blood Pressure Mean 99 Blood Pressure Mean [Right Arm] Blood Pressure Position [Right Arm] Pulse Oximetry 95 96 97 Oxygen Delivery Method Room Air Room Air 03/08/19 13:44 03/08/19 15:28 Temperature 36.3 C L 36.8 C Temperature Source Oral Oral Sepsis Recent Fever Within 48 Hours Sepsis New/Unexplained Change in Mental Status Sepsis Action Taken by Nursing Pulse Rate Pulse Rate [Apical] 78 83 Pulse Rate from SpO2 Sensor Pulse Rhythm [Apical] Pulse Strength [Apical] Respiratory Rate 20 20 Respiratory Effort / Characteristics Non-Labored Spontaneous Respiratory Depth Normal Respiratory Pattern Regular Blood Pressure Blood Pressure [Right Arm] 163/74 H 147/69 H Blood Pressure Mean Blood Pressure Mean [Right Arm] 103 95 Blood Pressure Position [Right Arm] Sitting Lying Pulse Oximetry 96 96 Oxygen Delivery Method Room Air Room Air Home Medications Current Medication List: was personally reviewed by me Laboratory Data Attestation: I reviewed the patient's lab results. Result diagrams: 03/08/19 10:03 03/08/19 10:03 Lab Results 03/08/19 03/08/19 03/08/19 Range/Units 10:03 10:03 10:03 WBC 4.89 (4.8-10.8) K/uL RBC 4.27 (4.2-5.4) M/uL Hgb 13.9 (12.0-16.0) g/dL Hct 39.0 (37-47) % MCV 91.3 (80-100) fL MCH 32.6 (25-34) pg MCHC 35.6 (32-36) g/dL RDW Std Deviation 41.1 (36.4-46.3) fL RDW Coeff of Annamaria 12.3 (11.5-14.5) % Plt Count 215 (130-400) K/uL MPV 9.8 (7.4-10.4) fL Immature Gran % (Auto) 0.2 % Neut % (Auto) 66.9 % Lymph % (Auto) 26.0 % Bennett % (Auto) 5.9 % Eos % (Auto) 0.6 % Baso % (Auto) 0.4 % Immature Gran # (Auto) 0.01 (0.00-0.02) K/uL Neut # (Auto) 3.27 (1.4-6.5) K/uL Lymph # (Auto) 1.27 (1.2-3.4) K/uL Bennett # (Auto) 0.29 (0.11-0.59) K/uL Eos # (Auto) 0.03 (0-0.5) K/uL Baso # (Auto) 0.02 (0-0.2) K/uL D-Dimer 280 (0-500) ug/L FEU Sodium 139 (136-145) mmol/L Potassium 3.3 L (3.5-5.1) mmol/L Chloride 103 (98-107) mmol/L Carbon Dioxide 30 (21-32) mmol/L Anion Gap 5.0 (3-11) BUN 15 (7-18) mg/dl Creatinine 0.62 (0.6-1.2) mg/dl Est Cr Clr Drug Dosing 57.9 ml/min Est GFR ( Amer) 96.0 Est GFR (Non-Af Amer) 82.8 BUN/Creatinine Ratio 24.4 H (10-20) Glucose 115 H (70-99) mg/dl Calcium 10.2 H (8.5-10.1) mg/dl Magnesium 1.5 L (1.8-2.4) mg/dl Troponin I < 0.015 (0-0.045) ng/ml NT-Pro-B Natriuret Pep (0-1800) pg/ml 03/08/19 03/08/19 Range/Units 10:03 14:52 WBC (4.8-10.8) K/uL RBC (4.2-5.4) M/uL Hgb (12.0-16.0) g/dL Hct (37-47) % MCV (80-100) fL MCH (25-34) pg MCHC (32-36) g/dL RDW Std Deviation (36.4-46.3) fL RDW Coeff of Annamaria (11.5-14.5) % Plt Count (130-400) K/uL MPV (7.4-10.4) fL Immature Gran % (Auto) % Neut % (Auto) % Lymph % (Auto) % Bennett % (Auto) % Eos % (Auto) % Baso % (Auto) % Immature Gran # (Auto) (0.00-0.02) K/uL Neut # (Auto) (1.4-6.5) K/uL Lymph # (Auto) (1.2-3.4) K/uL Bennett # (Auto) (0.11-0.59) K/uL Eos # (Auto) (0-0.5) K/uL Baso # (Auto) (0-0.2) K/uL D-Dimer (0-500) ug/L FEU Sodium (136-145) mmol/L Potassium (3.5-5.1) mmol/L Chloride (98-107) mmol/L Carbon Dioxide (21-32) mmol/L Anion Gap (3-11) BUN (7-18) mg/dl Creatinine (0.6-1.2) mg/dl Est Cr Clr Drug Dosing ml/min Est GFR ( Amer) Est GFR (Non-Af Amer) BUN/Creatinine Ratio (10-20) Glucose (70-99) mg/dl Calcium (8.5-10.1) mg/dl Magnesium (1.8-2.4) mg/dl Troponin I < 0.015 (0-0.045) ng/ml NT-Pro-B Natriuret Pep 58 (0-1800) pg/ml Administered Medications Potassium Chloride (K Eliel / Wtr) 10 meq in 100 mls @ 100 mls/hr IV Q1H DOLORES Stop: 03/08/19 18:14 Last Admin: 03/08/19 16:23 Dose: 100 mls/hr Documented by: [id number] Discontinued Medications Aspirin (Aspirin Chew) 324 mg PO NOW STA Stop: 03/08/19 11:16 Last Admin: 03/08/19 11:24 Dose: 324 mg Documented by: [id number] Potassium Chloride (K Eliel / Wtr) 10 meq in 100 mls @ 100 mls/hr IV Q1H DOLORES Stop: 03/08/19 14:49 Last Infusion: 03/08/19 15:40 Dose: 0 mls/hr Documented by: [id number] Admin: 03/08/19 14:40 Dose: 100 mls/hr Documented by: [id number] Labetalol HCl (Normodyne) 10 mg IV NOW STA Stop: 03/08/19 10:00 Last Admin: 03/08/19 10:24 Dose: 10 mg Documented by: [id number] Cosigned by: [id number] Imaging Data Radiologist's Impression: Radiology results as stated below per my review and the radiologist's interpretation: SINGLE VIEW CHEST CLINICAL HISTORY: Left-sided chest pain. Hypertension. Epistaxis. FINDINGS: An AP, portable, upright chest radiograph is compared to chest x-ray and chest CT dated 12/25/2017. The examination is degraded by portable technique and patient rotation. A left subclavian central venous infusion port is unchanged in position. The heart is enlarged and there is atherosclerotic calcification of the thoracic aorta. The pulmonary vasculature is noncongested. Chronic interstitial thickening is similar to previous. There are scattered calcified granulomas. No airspace consolidation or large pleural effusion is identified. No pneumothorax is seen. The skeletal structures are osteopenic. The bony thorax is grossly intact. IMPRESSION: Cardiomegaly with no acute cardiopulmonary abnormality. Electronically signed by: Lan Casey M.D. 03/08/2019 11:10 AM Blood Pressure Blood Pressure Findings: Elevated blood pressure Blood Pressure Disposition: further management by hospitalist Discharge Plan Visit Data *Final* Discharge Date/Time: 03/08/19 13:28 Chief Complaint: Chest Pain Stated Complaint: CHEST PAIN, LEFT ARM PAIN, ELEVATED BP 200/100 ED Provider: Leon Barton Discharge Problem: Hypertensive emergency, Left-sided chest pain Patient Disposition: Admitted As Inpatient Discharge Instructions Interventions: ED Discharge Assessment Last Done: 03/08/19 13:28 The scribe's documentation has been prepared under my direction and personally reviewed by me in its entirety. I confirm that the note above accurately reflects all work, treatment, procedures, and medical decision making performed by me.
--- NOTE | 2019-03-08 12:09 | History & Physical Report ---
Date of Service March 08, 2019 Assessment & Plan (1) Hypertensive emergency: 84 y/o F Hx ovarian CA. Admission for CP 2018 - had a negative stress echo. She does push ups at the gym a few times a week and states that she felt like she strained a muscle in her L chest two weeks ago. She has had pain in her L chest radiating into her axilla and back which she describes as sharp and intermittent. The pain is similar to the pain she described when admitted in 2018. She sates that as a result she has been taking Ibuprofen multiple times daily for the past 2 weeks. She presented to the ER ultimately as her pain would not subside and she became light headed the AM prior to arrival and had also developed epistaxis. She denies N/V, SOB or diaphoresis. Initial labs and an EKG did not support ACS. Her SBP on arrival was 225 systolic and responded well to a single dose of Labetolol. Her initial K was slightly low. 1) CP - I believe this is musculoskeletal as the pain has been present for 2 weeks and we do not currently have any evidence of ischemia. We will obtain 2 additional troponins as she did develop new symptoms this AM and her blood pressure was exceedingly high. No further testing will be ordered unless abnormalities are detected as she had a tress echo within the last yr. 2) HTN urgency - she does not have a history of HTN her BP nearly normalized with a single dose of Labetolol. I would speculate that her elevated pressure is due to two weeks of Ibuprofen use leading to afferent constriction. I have advised her to DC ibuprofen going forward. We will monitor her pressure overnight and have started her on PO Labetolol with holding parameters. If her HTN persists, we can consider outpt treatment although Labetolol may not be the best monotherapy. 3) Epistaxis - resolved 4) Ovarian CA - remission since 2013 Full code - SCDs due to epistaxis Total time for this admit including review of labs, meds, imaging, records - discussion with pt and ER attending - 36 min Present on Admission?: Yes (2) Left-sided chest pain: History of Present Illness Chief Complaint: Chest pain Primary Care Provider: Grzegorz Dior MD 84 y/o F Hx ovarian CA. Admission for CP 2018 - had a negative stress echo. She does push ups at the gym a few times a week and states that she felt like she strained a muscle in her L chest. This occurred two weeks ago. She has had pain in her L chest radiating into her axilla and back which she describes as sharp and intermittent. The pain is similar to the pain she described when admitted in 2018. She sates that as a result she has been taking Ibuprofen multiple times daily for the past 2 weeks. She presented to the ER ultimately as her pain would not subside and she became light headed the AM prior to arrival and had also developed epistaxis. She denies N/V, SOB or diaphoresis. Initial labs and an EKG did not support ACS. Her SBP on arrival was 225 systolic and responded well to a single dose of Labetolol. Her initial K was slightly low. 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 2) Recto-vaginal fistula 3) Ventral hernia 4) Upper extremity DVT owing to a line placed in 2012 5) Nephrolithiasis PSH: 1) Meniscectomy 2) YASHIRA/BSO 3) Colonic resection with colostomy formation and reversal 4) Cataract extraction b/l Social: does not drink or smoke - works out at the gym a few days a week Family: Father due to colon CA Mother due to complications of DM Allergies Allergy/AdvReac Type Severity Reaction Status Date / Time Sulfa (Sulfonamide Allergy Unknown UNKNOWN Verified 03/08/19 11:24 Antibiotics) adhesive AdvReac Mild ? 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 Beliefs That Will Affect Care: None Current Living Situation: Alone Other Information That Helps Us Care for You: No Feels Safe at Home: Yes Safety Concerns: Feels Safe At This Time Smoking Status: Never smoker Hx Alcohol Use: No Hx Substance Use: No Review of Systems Gen: Denies fevers, night sweats, rigors, fatigue, malaise, weight loss/gain ENT: Denies congestion, throat pain, hearing loss - epistaxis as above - resolved Eyes: Denies acute visual changes CV: L CP as above, palpitations Pulmonary: Denies SOB, cough, wheezing GI: Denies N/V, diarrhea, constipation Neuro: Denies acute or unilateral weakness, acute gait impairment, headache or acute visual changes - described lightheadedness AM Musculoskeletal: Denies joint pain, inflammation Endocrine: Denies polydipsia, polyuria Skin: Denies acute rashes or ulcers Physical Exam Vital Signs (Past 24 Hours): Last Vital Signs Temp 36.5 C 03/08/19 09:38 Pulse 78 03/08/19 11:00 Resp 18 03/08/19 11:00 BP 176/86 H 03/08/19 11:00 Pulse Ox 98 03/08/19 11:00 Physical Exam: General: AAO x 3, no distress ENT: No erythema or exudates, no thrush Eyes: RACHEL, EOMI Head and neck: Normocephalic, atraumatic, No JVD, neck is supple. Chest/heart: Nontender, S1,2, RRR, no murmurs, no gallops Lungs: CTAB, no wheezing or crackles Abdomen: Nontender, nondistended, BS+ Neuro: AAO x 3, speech is clear, no unilateral weakness or loss of sensation, coordination intact Musculoskeletal: No joint inflammation, muscle tenderness, FROM Skin: No acute rashes or ulcers Extremities: No clubbing, cyanosis, edema
[2019-03-08] MEDS ORDERED: NITROGLYCERIN 2% OINTMENT 30GM TUBE EXT ONE (12:16)
[2019-03-08] MEDS ORDERED: HydrALAZINE HCL 20 MG/ML VIAL IV PRN (13:44)
[2019-03-08] MEDS ORDERED: ALUMINUM/MAGNESIUM SUSP 30 ML UDC PO PRN (13:44)
[2019-03-08] MEDS ORDERED: ONDANSETRON INJ 2 MG/ML 2 ML VIAL IV PRN (13:44)
[2019-03-08] MEDS ORDERED: POLYETHYLENE (MIRALAX) 17 GM PACK PO PRN (13:44)
[2019-03-08] MEDS ORDERED: ACETAMINOPHEN 500 MG TAB PO PRN (13:44)
[2019-03-08] MEDS ORDERED: MAGNESIUM HYDROXIDE SUSP 30 ML UDC PO PRN (13:44)
[2019-03-08] MEDS: POTASSIUM CHLORIDE / WTR 10 MEQ/100 ML PLCT IV SCH ×4 (14:40→18:39)
[2019-03-08] MEDS ORDERED: MoRPHine SULFATE 2 MG/ML CARP IV STA (17:41)
[2019-03-08] MEDS ORDERED: TRAMADOL HCL 50 MG TABLET PO PRN (17:41)
[2019-03-08] MEDS ORDERED: MoRPHine SULFATE 2 MG/ML CARP ONE (17:47)
[2019-03-08] MEDS: LABETALOL HCL 100 MG TAB PO SCH (20:43)
[2019-03-09 08:22] VITALS: O2SAT 96
[2019-03-09 11:53] VITALS: TEMP 96.8
--- NOTE | 2019-03-09 12:03 | CT Scan Report ---
CT head/brain wo con CT DOSE: 1049.59 mGy.cm HISTORY: Pain right sided jaw pain into yazdanism TECHNIQUE: Multiaxial CT images of the head were performed without the use of intravenous contrast. A dose lowering technique was utilized adhering to the principles of ALARA. Comparison: 05/30/2018 Findings: The paranasal sinuses and mastoid air cells are clear. The calvarium and skull base are int act. The ventricles and sulci are within normal limits. There is no mass, hematoma, midline shift, or acute infarct. Impression: No acute intracranial abnormality. The above report was generated using voice recognition software. It may contain grammatical, syntax or spelling errors. Electronically signed by: Kehinde Aragon M.D. 03/09/2019 12:02 PM
[2019-03-09 12:11] LABS: BUN Creatinine Ratio 24.4 (10-20); Blood Urea Nitrogen 16 mg/dl (7-18); C Reactive Protein < 0.29 mg/dl (0-0.29); Calcium 10.1 mg/dl (8.5-10.1); Carbon Dioxide 29 mmol/L (21-32); Chloride 108 mmol/L (98-107); Creatinine Clr Calc Pharmacy 54.4 ml/min; Est GFR (Non-African American) 81.1; Glucose 91 mg/dl (70-99); Magnesium 1.9 mg/dl (1.8-2.4); Potassium 3.7 mmol/L (3.5-5.1); Sodium 141 mmol/L (136-145)
--- NOTE | 2019-03-09 12:21 | CT Scan Report ---
CT cervical spine wo con CT DOSE: HISTORY: Pain. Neuropathy. right sided neck pain radiating to the face/jaw TECHNIQUE: Multiaxial CT images of the cervical spine were performed and reformatted in the sagittal and coronal plane without the use of contrast. A dose lowering technique was utilized adhering to th e principles of ALARA. COMPARISON: None. FINDINGS: Vertebral body stature is normal throughout. There is mild to moderate degenerative disc ch anges throughout. Small anterior and posterior lateral osteophytes are present. There is no major bony compromise of the spinal canal or neural foramina. IMPRESSION: Moderate generalized degenerative change. No acute process. The above report was generated using voice recognition software. It may contain grammatical, syntax or spelling errors. Electronically signed by: Kehinde Aragon M.D. 03/09/2019 12:18 PM
[2019-03-09] MEDS: LABETALOL HCL 100 MG TAB PO SCH (12:44)
[2019-03-09 12:47] LABS: Lyme Ab IgG w/WB Rflx Negative (Negative); Lyme Ab IgM w/WB Rflx Negative (Negative)
--- NOTE | 2019-03-09 13:20 | Discharge Summary ---
Date of Service March 09, 2019 Admission HPI Per Admitting Provider 84 y/o F Hx ovarian CA. Admission for CP 2018 - had a negative stress echo. She does push ups at the gym a few times a week and states that she felt like she strained a muscle in her L chest. This occurred two weeks ago. She has had pain in her L chest radiating into her axilla and back which she describes as sharp and intermittent. The pain is similar to the pain she described when admitted in 2018. She sates that as a result she has been taking Ibuprofen multiple times daily for the past 2 weeks. She presented to the ER ultimately as her pain would not subside and she became light headed the AM prior to a rrival and had also developed epistaxis. She denies N/V, SOB or diaphoresis. Initial labs and an EKG did not support ACS. Her SBP on arrival was 225 systolic and responded well to a single dose of Labetolol. Her initial K was slightly low. 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 2) Recto-vaginal fistula 3) Ventral hernia 4) Upper extremity DVT owing to a line placed in 2012 5) Nephrolithiasis PSH: 1) Meniscectomy 2) YASHIRA/BSO 3) Colonic resection with colostomy formation and reversal 4) Cataract extraction b/l Social: does not drink or smoke - works out at the gym a few days a week Family: Father due to colon CA Mother due to complications of DM Principal Diagnosis Hypertensive urgency, left-sided chest pain Discharge Exam Constitutional WD/WN, vitals as above Eyes PERRL, conjunctivae normal, anicteric sclerae EOM intact bilaterally ENMT external ear and nose normal, oropharynx normal Mouth: no TMJ abnormality (Positive tenderness palpation over right mandible, no masses, no tenderness over right temporal region) Neck trachea midline, no thyromegaly (Significantly decreased range of motion especially with axial rotation to the right and to the left as well as with tilting head to the right and left) + neck tender (Tenderness to palpation over right paraspinous muscles of the neck and right trapezius with severe spasm palpated) Respiratory normal respiratory effort, lungs clear to auscultation Cardiovascular RRR, no murmur, no edema Chest (Breasts) normal inspection/palpation of breasts Chest: + vascular access device or port (Left anterior chest wall) Breast: normal inspection of axillae (With positive tenderness to palpation over the left lateral pectoralis muscle, no mass) Gastrointestinal (Abdomen) normal bowel sounds, soft, nontender, no hepatosplenomegaly Musculoskeletal Extremities: extremities normal to inspection; no cyanosis and no clubbing Skin no rashes, warm and dry Neurologic CN's II-XI intact bilaterally, moves all extremities (5 out of 5 strength throughout upper and lower extremities) and awake; no focal motor deficits, no meningeal signs and not confused Speech / Cognition: normal speech Motor/Sensory: no tremor Psychiatric A+Ox3, euthymic affect Discharge Data Allergies Allergy/AdvReac Type Severity Reaction Status Date / Time Sulfa (Sulfonamide Allergy Unknown UNKNOWN Verified 03/08/19 11:24 Antibiotics) adhesive AdvReac Mild ? Verified 03/08/19 11:24 Consultations None Ordered Studies 03/09/19 11:29 CT cervical spine wo con Urgent CT head/brain wo con Urgent Chest x-ray Hospital Course (1) Hypertensive emergency: This patient is an 84 y/o F Hx ovarian CA. Admission for CP 2018 - had a negative stress echo. She works out at the gym a few times a week and states that she felt like she strained a muscle in her L chest two weeks ago. She has had pain in her L chest radiating into her axilla and back which she describes as sharp and intermittent. The pain is similar to the pain she described when admitted in 2018 that she had after performing 20 push-ups; she has not performed any push-ups since that time. She sates that as a result she has been taking Ibuprofen 400 mg daily for the past 2-3 weeks. She presented to the ER ultimately as her pain would not subside and she became light headed the AM prior to arrival and had also developed epistaxis. She denies N/V, SOB or diaphoresis. Initial labs and an EKG did not support ACS. Her SBP on arrival was 225 systolic and responded well to a single dose of Labetolol. Her initial K was slightly low. HTN urgency - she does not have a history of HTN. She has been checking her blood pressure regularly at home and has never had an elevated blood pressure in the past. Her BP is now normalized with starting p.o. Labetolol. I would speculate that her elevated pressure is due to two-3 weeks of Ibuprofen use leading to afferent constriction. Her renal function here is normal. Her electrolyte abnormality is resolved by the next day. -Recommend discontinuing all NSAIDs moving forward and she can take a cetaminophen for pain -We will continue labetalol 100 mg p.o. 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 She will hold the medication if her blood pressure is less than 110/60. She may not need to continue this long-term after the adverse effects of the previous NSAIDs are resolved if indeed that is what caused her elevated blood pressure. -She needs close follow-up with her primary care physician (2) Left-sided chest pain: I believe this is musculoskeletal as the pain has been present for 2 weeks and there is no evidence of ischemia. She had a stress echo within the last yr. Serial troponin here was negative x3. There is no ischemia on her ECG Her pain persists and is reproducible upon physical examination and is likely musculoskeletal. -Advised to continue follow-up with her PCP and rest from any exertion with lifting -Continue acetaminophen only as needed for pain (3) Right facial pain: Is occurring about once a week for the last 4 weeks, comes on at rest and is relieved on its own with no intervention. She is also having right-sided posterior neck pain for which she is a been applying heating pad. She denies any vision changes. No jaw claudication. She did have recent dental work on a posterior molar on the lower jaw after the pain started and the pain persisted since the problem with her tooth was corrected. She had some tenderness to palpation over the right mandible upon examination. It was partially relieved with Tylenol. Question of could be trigeminal neuralgia? This is related to her severe spasm in the right side of the neck and moderate degenerative changes on CT of the spine performed here? CT of the head noncontrast was negative. ESR and CRP were perfectly normal at ESR 20 and undetectable for the CRP, electrolyte abnormalities were resolved and BMP. There is no concern for temporal arteritis -Recommend muscle relaxer with cyclamens 0.5 mg p.o. nightly as needed muscle spasm and see if this helps -Follow-up with PCP within 1 week (4) Ventral hernia: Stable, reducible (5) Hypercalcemia: Calcium mildly elevated at 10.3 here. Could be from mild dehydration upon admission as all of her other previous calcium levels have been normal. However she does take a large dose of vitamin D -Recommend holding vitamin D and rechecking calcium levels in a few weeks with PCP (6) History of ovarian cancer: In remission since 2013 (7) Elevated blood pressure reading: As above, does not have a diagnosis of hypertension this may be secondary to NSAID use (8) Epistaxis: Now resolved and may been related to NSAID use as well (9) DVT prophylaxis: SCDs were employed Disposition-patient is stable for discharge to home Her case was discussed at her request with her brother who is a physician, as well as her daughter who is a transplant nurse Total Time Total Time Spent Total Time Spent (In Minutes): Greater than 30 minutes Total Time Includes: Examination of the Patient, Discharge Planning and Medication Reconciliation Discharge Plan Discharge Items Patient Disposition: Home - Self-Care Reason For Visit: CHEST PAIN, HTNUGENCY Discharge Diagnosis: Chest pain, hypertensive urgency Condition: Good Discharge Goals: Decrease discomfort, Diagnostic testing, Improve disease control, Learn about illness and Therapeutic intervention Activity: As commented below Lifting: Gradually increase as tolerated Bathing: No limitations Exercise/Sports: Gradually increase as tolerated Non-emergency contact: Primary Care Provider Call non-emergency contact if: you have any medication questions, your symptoms worsen, your pain is not controlled, your pain is worsening, your pain is unusual for you and your pain is concerning for you Follow-up/Referrals: Feliciano Dior MD [Primary Care Provider] - (Please call for an appointment within 1 week. ) Diet: Heart Healthy Addtl Provider Instructions: You were admitted with left-sided chest pain that is likely related to a musculoskeletal injury or perhaps from arthritis in your neck. You had blood tests and an EKG which ruled you out for a heart attack. Your blood pressure was also significantly elevated and you were started on treatment for this with a medication called labetalol. Please continue to take this 1 tablet twice a day and check your blood pressure twice a day before taking the pill. If your blood pressure is less than 110/60, then do not take the medication. It is possible that your blood pressure was elevated due to the recent pain in your chest as well as using ibuprofen. It is important that you no longer take any ibuprofen or other NSAIDs [id number] i.e. Aleve, naproxen, Motrin, Advil, etc. You also were having pain in the right side of your neck and jaw/face that has been going on once a week for the last 4 weeks that you reported. Blood tests were performed which were negative for inflammation, and you had a CT of the head and neck which showed some arthritis in the neck but were otherwise normal. This also may be related to musculoskeletal or perhaps a nerve issue in the face. Please follow-up with your primary care physician for this. You were prescribed cyclobenzaprine as a muscle relaxer which you can take at bedtime as needed. This medication can make you drowsy, but you were prescribed at the lowest possible dose. You also had mildly elevated calcium levels. It is recommended that you stop taking your vitamin D at least temporarily and have this rechecked with your primary care physician. Please follow-up with your primary care physician for follow-up within 1 week. Prescriptions: New labetalol 100 mg Tablet 100 mg PO BID Qty: 60 RF: 0 cyclobenzaprine 5 mg tablet 5 mg PO HS PRN (Reason: muscle spasm) Qty: 10 RF: 0 Continued multivitamin Tablet 1 tab PO QAM RF: 0 aspirin 81 mg Tablet,Delayed Release (Dr/Ec) 81 mg PO Q2D RF: 0 acetaminophen [Tylenol Extra Strength] 500 mg Tablet 500 mg PO Q6H PRN (Reason: Pain) RF: 0 biotin 1 mg Tablet 1 mg PO QAM RF: 0 Discontinued ibuprofen 200 mg Tablet 200 mg PO Q6H PRN (Reason: Pain) RF: 0 Vitamin D3 4,000 unit Capsule 4,000 unit PO QAM RF: 0 Stand-Alone Forms: [facility] Discharge Orders: Discharge Order (Routine); Ordered 03/09/19 Ordered By: Dorothy Deleon Admission Data Admit Date/Time: 03/08/19 11:56 Attending Provider: Dorothy Deleon Admit Provider: Lars Minaya Primary Care Provider: Feliciano Dior Other Providers: Lars Minaya Service: Telemetry Other Pending Studies at Discharge: No
[2019-03-09 13:39] VITALS: BP 138/77; PULSE 85
[2019-03-10] MEDS ORDERED: ASPIRIN 81 MG ECTAB PO SCH (09:00)
== END 2019-03-09 13:54 | disposition home or self-care (01) ==
LOC: ED 09:35 → 2S 09:35 → SUATTDRO 11:56 → 2S 13:28